=== PATIENT | female | born 1955 | race Caucasian/White ===

== ENCOUNTER → 2016-11-08 | Outpatient (CLI) | payer OTHER, SELFPAY ==
[~2016-11-08] MED LIST: ACCUNEB SO1.25 MG/1 INH; ACYCLOVIR 400400 MG PO; ATENOLOL 100MG100 M2 PO; ATIVAN1 MG PO; BACTRIM DS TAB1 EACH PO; ESTRACE0.5 MG PO; HYDROCODON-ACE1 EAC5 PO; LIPITOR40 MG PO; METHADONE HCL5 MG PO; PREVACID15 MG PO; VITAMIN D 5050000 I1
== END ==
LOC: RAD 14:02
DX: M19.011 Primary osteoarthritis, right shoulder (principal); M25.511 Pain in right shoulder

== ENCOUNTER → 2017-03-10 | Outpatient (CLI) | payer OTHER, SELFPAY | LOC: MRI 09:28 | DX: M17.12 Unilateral primary osteoarthritis, left knee (principal); M25.462 Effusion, left knee; M85.60 Other cyst of bone, unspecified site ==

== ENCOUNTER 2017-07-01 06:28 | Emergency (ER) | payer OTHER, SELFPAY ==
[~2017-07-01] VITALS: Ht 162.6 cm; Wt 90.7 kg
[2017-07-01] MEDS ORDERED: LISINOPRIL10 MG PO (06:42)
[2017-07-01] MEDS ORDERED: BENTYL 10 MG CA10 M1 PO (06:43)
[2017-07-01] MEDS ORDERED: LEVSIN0.125 MG PO (06:44)
[2017-07-01] MEDS ORDERED: LIDODERM1 EACH TRANSDERM (06:44)
[2017-07-01] MEDS ORDERED: PREVACID30 MG PO (06:44)
[2017-07-01] MEDS ORDERED: CLONIDINE0.1 PO (06:45)
[2017-07-01] MEDS ORDERED: LINZESS145 MCG PO (06:45)
[2017-07-02] MEDS ORDERED: PREDNISONE 20 M20 MG PO (03:28)
== END 2017-07-01 07:22 | disposition home or self-care (01) ==
LOC: ER 06:28
DX: T63.461A Toxic effect of venom of wasps, accidental (unintentional), initial encounter (principal); Z96.651 Presence of right artificial knee joint; Z88.5 Allergy status to narcotic agent; Z88.1 Allergy status to other antibiotic agents; Z88.8 Allergy status to other drugs, medicaments and biological substances; Y92.89 Other specified places as the place of occurrence of the external cause

== ENCOUNTER 2017-07-02 02:57 | Emergency (ER) | payer OTHER, SELFPAY ==
[~2017-07-02] VITALS: Ht 162.6 cm; Wt 90.7 kg
[~2017-07-02 02:57] MED LIST changes: +BENTYL 10 MG CA10 M1 PO; +CLONIDINE0.1 PO; +LEVSIN0.125 MG PO; +LIDODERM1 EACH TRANSDERM; +LINZESS145 MCG PO; +LISINOPRIL10 MG PO; +PREVACID30 MG PO
[2017-07-02] MEDS ORDERED: PREDNISONE 20 M20 MG PO (03:28)
== END 2017-07-02 03:56 | disposition home or self-care (01) ==
LOC: ER 02:57
DX: R22.0 Localized swelling, mass and lump, head (principal); T63.441A Toxic effect of venom of bees, accidental (unintentional), initial encounter; Z90.710 Acquired absence of both cervix and uterus; Z96.651 Presence of right artificial knee joint; Z88.5 Allergy status to narcotic agent; Z88.1 Allergy status to other antibiotic agents; Z88.8 Allergy status to other drugs, medicaments and biological substances; Y92.89 Other specified places as the place of occurrence of the external cause

== ENCOUNTER → 2017-12-16 | Outpatient (CLI) | payer OTHER, SELFPAY ==
[~2017-12-16] MED LIST changes: +ATENOLOL 50MG T50 MG PO; +PREDNISONE 20 M20 MG PO; +VOLTAREN GEL 1100 G2 TOP
== END ==
LOC: RAD 11-07 11:17 → NUC 11-07 16:17
DX: Z12.31 Encounter for screening mammogram for malignant neoplasm of breast (principal); M85.89 Other specified disorders of bone density and structure, multiple sites; Z78.0 Asymptomatic menopausal state

== ENCOUNTER → 2018-04-20 | Outpatient (CLI) | payer OTHER, SELFPAY ==
[~2018-04-20] VITALS: Ht 162.6 cm; Wt 99.8 kg
--- NOTE | ~2018-04-20 | HPC ---
[facility] [place] [address] PAIN MANAGEMENT CONSULTATION Name: DHAVALROSIBEL IVANNA Room #: REG [facility] Debbie.#: [id number] Admission: 04/20/18 Attend Phys: Blaine Underwood MD Discharge: Date of : 59 Report #: [id number] THIS REPORT FOR: //name// CC: Carmela Underwood DATE OF SERVICE: 04/20/2018 DATE OF REGISTRATION: 04/20/2018 REASON FOR VISIT: Followup visit for lumbar radiculopathy, recurrent. HISTORY OF PRESENT ILLNESS: The patient returns to pain clinic today now 3 months after her last epidural injection. Her injection performed on 01/30/2018 provided excellent relief for several months, pain now returning. Pain once again is in the back radiating to the left hip and leg, it follows an L4 through S1 distribution. She also has pain bilaterally in the feet related to degenerative disease of the ankles. Almost looks like Charcot joints, although she has never been diagnosed as such. MEDICATIONS AND ALLERGIES: Reviewed and reconciled. There has been no change in her health history since her last visit here. It should be noted that she continues to take opioid medication provided by her primary care physician. She takes it cautiously with great benefit. She uses methadone 5 mg q. 8 hours and hydrocodone taking up to 6 tablets a day. She gets improvement to the point that she is able to be active and useful on a daily basis. This also improves her mood. She has no significant side effects and understands that there is an opioid crisis that is incumbent upon as a safeguarded medications. It is excellent that her primary care physician is taking responsibilities for these medications and I am glad that she has someone who cares about her to provide this important measure of treatment for her chronic intractable pain. IMPRESSION: 1. Lumbar radiculopathy, L4-L5 distribution. 2. Epidural steroid injection under fluoroscopic guidance. DESCRIPTION OF PROCEDURE: She was taken to fluoroscopic suite, placed prone, skin prepped with ChloraPrep. Skin anesthetized over L4-L5 to the left midline. A 20-gauge Tuohy epidural needle advanced in the epidural space with loss of resistance technique. There was no blood or CSF aspirated. 1 mL of Omnipaque injected. Good spread of dye observed in the epidural space followed by 3 mL of [facility] [address] [place] [address] PAIN MANAGEMENT CONSULTATION Name: ROSIBEL PUENTES Room #: REG [facility].#: [id number] Admission: 04/20/18 Attend Phys: Blaine Underwood MD Discharge: Date of : 59 Report #: [id number] 0.5% lidocaine mixed with 80 mg triamcinolone. She tolerated the procedure well and was observed for 45 minutes and discharged. Follow up as needed. <ELECTRONICALLY SIGNED> By: Blaine Underwood MD 04/24/18 1230 1328 0055 Blaine Underwood MD /morris
[2018-04-20 12:32] VITALS: BP 183/74
== END | disposition home or self-care (01) ==
LOC: PAIN 07:25
DX: M54.16 Radiculopathy, lumbar region (principal)

== ENCOUNTER → 2018-08-14 | Outpatient (CLI) | payer OTHER ==
[~2018-08-14] VITALS: Ht 157.5 cm; Wt 98.1 kg
--- NOTE | ~2018-08-14 | HPC ---
[facility] [place] [address] PAIN MANAGEMENT CONSULTATION Name: DHAVALROSIBEL LEE Room #: REG [facility].#: [id number] Admission: 08/14/18 Attend Phys: Blaine Underwood MD Discharge: Date of : 59 Report #: [id number] THIS REPORT FOR: //name// CC: Carmela Underwood DATE OF SERVICE: 08/14/2018 Followup visit for cervical radiculopathy. The patient is here today with increasing pain in her neck radiating up through the occiput into both shoulders. She has cervical spondylosis and stenosis. An MRI performed in 2015 showed significant narrowing at C3-C4 through C5-C6, posterior ridging and spurring and borderline canal narrowing. There is more pain to the right where she has asymmetric right-sided osteophytic changes and disk osteophyte. This narrows the lateral recess. She would like very much to avoid surgery and is grateful for the extended relief she gets from her cervical epidural injections. She would like to repeat the injection today. Medications have been reviewed and reconciled. I do not provide medications for her. She is currently receiving lorazepam, albuterol, methadone, hydrocodone, atorvastatin, acyclovir, vitamins, dicyclomine, atenolol, Prevacid and diclofenac from primary care physician, Dr. Carmela Wu. PHYSICAL EXAMINATION: Blood pressure is 186/92, heart rate 70, respirations 18. Range of motion of the cervical spine is reduced in neck extension, which reproduces pain into the neck and shoulders. Forward flexion and rotational movements performed within normal limits. She has tenderness in the cervical spine. Deep tendon reflexes are trace at biceps and triceps, brachioradialis, 1+ at knees and ankles and symmetrical. There have been no asymmetric changes. Sensation is intact. There is no hyperreflexia in the lower extremities. IMPRESSION: 1. Cervical radiculopathy due to multilevel cervical spondylitic changes and stenosis. 2. Chronic low back pain with radiculopathy, which has responded nicely to previous epidural injections in the lumbar region. RECOMMENDATIONS: Proceed today with cervical epidural injection. PROCEDURE: She was taken to fluoroscopic suite, placed prone, skin prepped with ChloraPrep. Skin anesthetized over C5-C6. A 20-gauge Tuohy epidural needle advanced first attempt to the epidural space with loss of resistance technique. There was no blood or CSF aspirated. 1 mL of Isovue injected. Good spread of [facility] [address] [place] [address] PAIN MANAGEMENT CONSULTATION Name: ROSIBEL PUENTES IVANNA Room #: REG [facility]#: [id number] Admission: 08/14/18 Attend Phys: Blaine Underwood MD Discharge: Date of : 59 Report #: [id number] dye observed in the epidural space followed by 3 mL of 0.5% lidocaine mixed with 80 mg of triamcinolone. She tolerated the procedure well. Pain was markedly reduced in recovery room. She was discharged after a short stay in good condition with no complications. Follow up as needed. By: 1404 Blaine Underwood MD /nt
[2018-08-14 12:45] VITALS: BP 186/89
== END | disposition home or self-care (01) ==
LOC: PAIN 07-20 08:12
DX: M54.12 Radiculopathy, cervical region (principal); M48.02 Spinal stenosis, cervical region; G89.29 Other chronic pain; Z79.899 Other long term (current) drug therapy; Z88.8 Allergy status to other drugs, medicaments and biological substances

== ENCOUNTER → 2018-12-19 | Outpatient (CLI) | payer OTHER | LOC: RAD 11:52 | DX: Z12.31 Encounter for screening mammogram for malignant neoplasm of breast (principal) ==

== ENCOUNTER → 2019-08-01 | Outpatient (CLI) | payer OTHER | LOC: MRI 12:09 | DX: M19.071 Primary osteoarthritis, right ankle and foot (principal) ==

== ENCOUNTER → 2019-11-29 | Outpatient (CLI) | payer OTHER ==
[~2019-11-29] VITALS: Ht 157.5 cm; Wt 96.8 kg
--- NOTE | ~2019-11-29 | HPC ---
[facility] [place] [address] [place] [address] PAIN MANAGEMENT CONSULTATION Name: ROSIBEL PUENTES IVANNA Room #: REG [facility].#: [id number] Admission: 11/29/19 Attend Phys: Blaine Underwood MD Discharge: Date of : 59 Report #: [id number] THIS REPORT FOR: cc: Carmela Wu MD, Laurie Dawn MD Morgan,Blaine Coehn MD ~ THIS REPORT FOR: //name// CC: Carmela Underwood DATE OF SERVICE: 11/29/2019 CHIEF COMPLAINT: Low back pain with radiation down the posterior lateral aspect of the left leg. The patient is a pleasant 64-year-old, who has ongoing back pain with radiculopathy. Pain is typically in the low back, radiates into her left buttock and to just below the knee, mostly in the L4 distribution. She also has some pain into the top of the foot following L5 and the great toe, which is L4 distribution. Her last lumbar epidural injection was performed, left paramedian in 2018 and she reported 90% pain relief. Pain is now returning to a less tolerable level. She describes it as a 7/10 and very uncomfortable. She has not responded to the usual exercise and treatments. PHYSICAL EXAMINATION: She is 5 feet 2 inches, BMI of 39. Blood pressure 178/84, heart rate 64, respirations 16. She moves from sitting to standing position. Her gait is mildly antalgic. There is tenderness across the lumbosacral segment and pain with forward flexion and extension. Straight leg raising reproduces pain in the distribution described above. X-rays: I reviewed the MRIs distant from 2012, but at that time, she showed spondylosis at multiple levels with a left sided neural foraminal narrowing at L3-L4. There was some degenerative disk disease at L4-L5 as well. IMPRESSION: She has developed L4-L5 lumbar radiculopathy, which is responsive to lumbar epidural injections. RECOMMENDATIONS: I think it is reasonable for us to proceed at this time with an epidural injection, but she will need preauthorization from her insurance [facility] [address] [place] [address] PAIN MANAGEMENT CONSULTATION Name: DHAVALROSIBEL LEE Room #: REG [facility] [place]#: [id number] Admission: 11/29/19 Attend Phys: Blaine Underwood MD Discharge: Date of : 59 Report #: [id number] PPO. We will schedule her low back. I see no reason why they would deny this procedure, which is so valuable to her. Appointment scheduled for next week. By: 1945 [id number] Blaine Underwood MD /nt
[2019-11-29 10:25] VITALS: BP 178/84
--- NOTE | 2019-11-29 10:54 | NUR ---
Pain Clinic Assessment: 1. History of Osteoarthritis: GENERALIZED History of Rheumatoid Arthritis: Not Applicable 2. Height: 5 ft. 2 in. 157.5 cm. Weight: 213.4 lb. oz. 96.798 kg. Patient's BMI: 39.0 3. Vital Signs: BP: 178/84 Pulse: 64 Resp: 16 Temp: 02 Sat: 99 ECG Mon: 4. Pain Intensity: 7 5. Fall Risk: Dizziness: N Needs help standing or walking: N Fallen in the last 3 months: N Fall risk comments: 6. Patient on Blood Thinner: None 7. History of Hypertension: Y 8. Opioid Therapy greater than 6 weeks: Y Opiate Contract Signed: 01/16/18 9. Risk Assessment Tool Provided: 0 LOW 10. Functional Assessment Tool: 11. Recreational Drug Use: Never Drug Type: Tobacco Use: Never Smoker Tobacco Type: Amount or Packs/day: How Many Years: Alcohol Use: No Frequency: Quant:
== END ==
LOC: PAIN 06:55
DX: M54.16 Radiculopathy, lumbar region (principal); Z79.899 Other long term (current) drug therapy

== ENCOUNTER → 2019-12-05 | Outpatient (CLI) | payer OTHER ==
[~2019-12-05] VITALS: Ht 157.5 cm; Wt 97.6 kg
[2019-12-05 12:54] VITALS: BP 187/86
--- NOTE | 2019-12-05 13:07 | NUR ---
Pain Clinic Assessment: 1. History of Osteoarthritis: GENERALIZED History of Rheumatoid Arthritis: Not Applicable 2. Height: 5 ft. 2 in. 157.5 cm. Weight: 215.2 lb. oz. 97.614 kg. Patient's BMI: 39.4 3. Vital Signs: BP: 187/86 Pulse: 80 Resp: 16 Temp: 02 Sat: 98 ECG Mon: 4. Pain Intensity: 4-5 5. Fall Risk: Dizziness: N Needs help standing or walking: N Fallen in the last 3 months: N Fall risk comments: 6. Patient on Blood Thinner: None 7. History of Hypertension: Y 8. Opioid Therapy greater than 6 weeks: Y Opiate Contract Signed: 01/16/18 9. Risk Assessment Tool Provided: 0 LOW 10. Functional Assessment Tool: 11. Recreational Drug Use: Never Drug Type: Tobacco Use: Never Smoker Tobacco Type: Amount or Packs/day: How Many Years: Alcohol Use: No Frequency: Quant:
--- NOTE | 2019-12-11 08:03 | HPC ---
[facility] [place] [address] [place] [address] PAIN MANAGEMENT CONSULTATION Name: DHAVAL,ROSIBEL IVANNA Room #: REG [facility].#: [id number] Admission: 12/05/19 Attend Phys: Catrachito Daley DO Discharge: Date of : 59 Report #: [id number] THIS REPORT FOR: cc: Carmela Wu MD,Catrachito Zaragoza MD, DO ~ THIS REPORT FOR: //name// CC: Catrachito Wu DATE OF SERVICE: 12/05/2019 REFERRING PHYSICIAN: Carmela Wu MD. CHIEF COMPLAINT: Low back pain, left lower extremity pain with paresthesias. HISTORY OF PRESENT ILLNESS: As you know, the patient is a pleasant 64-year-old female who has returned today in followup visit with recurrent low back pain, left lower extremity pain with paresthesias, appears to be related to a L5 dermatomal distribution. The patient has had injections in the past with good efficacy. Due to scheduling conflicts, the patient was placed on my clinic schedule to undergo a lumbar epidural injection under fluoroscopic guidance using a transforaminal approach. The patient has had some issues with steroid in the past causing severe flushing, palpitations and some increased anxiety. It was determined that the patient should undergo a transforaminal epidural injection utilizing 40 mg dose of triamcinolone to reduce the potential side effects of a steroid exposure. The patient does place pain today at a level of 4-5/10. She returns today to undergo transforaminal epidural injection to address lumbar radicular symptoms involving the left L5 nerve root. ALLERGIES: CODEINE, OXYCODONE, ERYTHROMYCIN, RIFAMPIN, NITROFURANTOIN, MOXIFLOXACIN. CURRENT MEDICATIONS: Diclofenac, lorazepam, albuterol, methadone, hydrocodone, estradiol, atorvastatin, acyclovir, vitamin D, dicyclomine, lansoprazole, atenolol. IMAGING: No new imaging available. PQRS: The patient has known arthritic changes of the lumbar spine, bilateral hips and knees. No rheumatoid arthritis. She is placing pain intensity today 4-03/02, not a fall risk, has not had a fall in last 3 months. She is not on blood thinners, but is treated for hypertension. She is on chronic opioids and has reportedly low opioid addiction potential based on our assessment tool. [address] [address] PAIN MANAGEMENT CONSULTATION Name: DHAVAL,ROSIBEL LEE Room #: REG [facility] [place]#: [id number] Admission: 12/05/19 Attend Phys: Catrachito Daley DO Discharge: Date of : 59 Report #: [id number] Pain impact today , indicating moderate interference of daily activities secondary to pain. PHYSICAL EXAMINATION: VITAL SIGNS: Blood pressure 187/86, pulse 80, respiratory rate 16 and unlabored. The patient is 98% on room air. Height 5 feet 2 inches tall, weight 215.2 pounds, BMI calculated 39.4. GENERAL: Well-developed, well-nourished, well-hydrated, morbidly obese 64-year-old female appearing stated age, pain is rated today 4-5/10. HEENT: Normocephalic, atraumatic. Pupils equal, round, reactive to light. Extraocular muscles are intact. Sclerae nonicteric without injection. NEUROLOGIC: Cranial nerves 2-12 grossly intact. Speech is fluent. The patient deemed a good historian. EXTREMITIES: Show no clubbing, no cyanosis, and no edema. MUSCULOSKELETAL: Lower extremity strength appears symmetrical 5/5. Slight giveaway strength noted with hip flexion and knee extension on the left when compared to the right. Seated straight leg raising is positive on the left. Supine straight leg raising positive on the left. Juana's test is negative. Modified Gaenslen's positive for axial low back pain. Gait appears mildly antalgic favoring left lower extremity over right. ASSESSMENT: 1. Symptomatic lumbar radiculopathy. 2. Lumbosacral spondylosis with radiculopathy. 3. Recurrent lumbar radicular pain. 4. Chronic intractable pain. PLAN: 1. The patient returns today in followup visit having received the prior authorization to undergo transforaminal epidural injection at the L5 level to address the L5 nerve root. The patient and I did discuss the risks and benefits of this procedure today. These risks include but are not necessarily limited to bleeding, bruising, infection, worsening pain, no relief of pain, also risk of temporary or permanent muscle weakness, temporary or permanent nerve damage, possible paralysis, post-dural puncture headache, similar side effects that she is seeing with the steroids in the past and . The patient states she understood and wished to proceed. 2. No medication changes made at today's visit. The patient will continue current medical therapy as previously prescribed. 3. We will see the patient back in followup visit on an as needed basis for possible next in the series of epidural injections. We are hopeful the patient will see good and prolonged benefit with today's procedure. DESCRIPTION OF PROCEDURE: L5-S1 left transforaminal epidural steroid injection under fluoroscopic guidance. [address] [address] PAIN MANAGEMENT CONSULTATION Name: ROSIBEL PUENTES [id number] Admission: 12/05/19 Attend Phys: Catrachito Daley DO Discharge: Date of : 59 Report #: [id number] After obtaining written consent, the patient was taken back to fluoroscopy suite, placed in prone position with pillow under abdomen to decrease lumbar lordosis. Skin overlying lumbosacral area then prepped and draped in aseptic fashion. The L5 vertebral level was identified by fluoroscopy. The neural foramen (6 o'clock position of the pedicle) was then identified utilizing an oblique fluoroscopic view. Skin and subcutaneous tissue overlying target site of injection was anesthetized with 3 mL of 1% lidocaine. Using a tunneled view, a 22-guage 4-1/2 inch Tuohy needle with bent tip was advanced towards the left epidural space under fluoroscopic guidance. The final position of the needle was identified using AP and lateral views. There was no pain or paresthesias with needle placement. After negative aspiration for heme or cerebrospinal fluid, 0.5 mL of Omnipaque was injected demonstrating absence of vascular uptake and an excellent epidurogram. After negative aspiration for heme, 3 mL of a solution containing 1.5 mL of triamcinolone for a total of 60 mg and 1.5 mL of lidocaine 1% preservative-free was injected. Needle was retracted approximately half way, flushed with 1 mL of 1% lidocaine and removed. Sterile bandage placed over injection site. There were no new motor deficits present in lower extremity following procedure. The patient tolerated the procedure well, carefully escorted to recovery room in stable condition. No apparent complications. After meeting discharge criteria, the patient discharged home. <ELECTRONICALLY SIGNED> By: Catrachito Daley DO 12/11/19 0803 1642 2209 Catrachito Daley DO /nt
== END | disposition home or self-care (01) ==
LOC: PAIN 12-04 10:31
DX: M47.27 Other spondylosis with radiculopathy, lumbosacral region (principal); G89.29 Other chronic pain; I10 Essential (primary) hypertension; M19.90 Unspecified osteoarthritis, unspecified site; Z88.8 Allergy status to other drugs, medicaments and biological substances; Z79.899 Other long term (current) drug therapy

== ENCOUNTER → 2020-04-01 | Outpatient (CLI) | payer OTHER | LOC: ULTRA 15:04 | PROVIDERS: ATTEND Family Medicine | DX: K83.8 Other specified diseases of biliary tract (principal); K82.8 Other specified diseases of gallbladder ==

== ENCOUNTER → 2020-04-04 | Outpatient (CLI) | payer OTHER | LOC: BC 13:51 | PROVIDERS: ATTEND Family Medicine | DX: Z12.31 Encounter for screening mammogram for malignant neoplasm of breast (principal) ==

== ENCOUNTER 2021-05-11 13:05 | Inpatient (IN) | payer OTHER ==
[~2021-05-11] VITALS: Ht 152.4 cm; Wt 98.0 kg
[2021-05-11 13:24] VITALS: BP 177/121
[2021-05-11 13:43] LABS: ABSOLUTE NEUTROPHILS 5.6 thou/uL (1.4-8.2); EOSINOPHILS 0.5 % (0.0-3.0); HEMATOCRIT 30.1 % (37.0-47.0); LYMPHOCYTES 20.6 % (24.0-44.0); MCH 31.2 pg (26.0-34.0); MCHC 33.3 g/dL (28.0-37.0); MCV 93.8 fL (80.0-100.0); MONOCYTES 6.7 % (1.0-8.0); PLATELET COUNT 237 thou/uL (150-400); POLYS 71.2 % (36.0-66.0); RBC 3.21 mil/uL (4.20-5.00); RDW 15.5 % (10.5-14.5); WBC 7.9 thou/uL (4.0-11.0)
[2021-05-11 13:52] LABS: ANION GAP 7 mmol/L (7-16); BUN 11 mg/dL (7-18); CALCIUM 8.9 mg/dL (8.5-10.1); CHLORIDE 102 mmol/L (98-107); CO2 29 mmol/L (21-32); GLUCOSE 105 mg/dL (74-106); POTASSIUM 4.2 mmol/L (3.5-5.1); SODIUM 138 mmol/L (136-145)
[2021-05-11 14:01] LABS: ALBUMIN 3.3 g/dL (3.4-5.0); SGOT 43 U/L (15-37); SGPT 37 U/L (14-59); TOTAL BILIRUBIN 0.6 mg/dL (0.2-1.0); TROPONIN-I <0.06 ng/mL (<0.06)
--- NOTE | 2021-05-11 14:54 | EKG ---
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: KF : 1955 Requested By: Hellen Berrios Order Number: [id number] MD: Silvano Gutierrez Measurements Intervals [place] Rate: 140 P: -8 DC: 79 QRS: 58 QRSD: 85 T: -10 QT: 316 QTc: 482 Interpretive Statements Suspect Sinus tachycardia Nonspecific repol abnormality, inferior leads Compared to ECG 09/11/2013 12:11:20 Early repolarization now present Sinus rhythm no longer present ST (T wave) deviation no longer present Electronically Signed On 05-11-2021 14:54:10 CDT by Silvano Gutierrez [email or web address] <ELECTRONICALLY SIGNED> By: Silvano Gutierrez MD, [facility] 05/11/21 1454 1403 140 Silvano Gutierrez MD, FACC /EPI
[2021-05-11 15:08] LABS: URINE BILIRUBIN NEGATIVE (Negative); URINE BLOOD NEGATIVE (Negative); URINE CLARITY CLEAR; URINE COLOR YELLOW; URINE GLUCOSE-RANDOM* NEGATIVE (Negative); URINE KETONES NEGATIVE (Negative); URINE LEUKOCYTES-REFLEX NEGATIVE (Negative); URINE NITRITE-REFLEX NEGATIVE (Negative); URINE PROTEIN (DIPSTICK) 1+ (Negative); URINE SPECIFIC GRAVITY 1.015 (1.005-1.035); URINE UROBILINOGEN 0.2 E.U./dl (0.2-1.0)
[2021-05-11 15:16] LABS: AMP/METHAMP Negative (Negative); BARBITURATES Negative (Negative); BENZODIAZEPINES Negative (Negative); COCAINE Negative (Negative); METHADONE POSITIVE (Negative); OPIATES POSITIVE (Negative); PCP Negative (Negative)
[2021-05-11 15:19] LABS: SQUAMOUS 0-3 Few /LPF (0-3); URINE RBC None Seen /HPF (NONE SEEN); URINE WBC-REFLEX 0-5 Rare /HPF (0-5)
[2021-05-11 15:20] LABS: CASTS None Seen /LPF (None Seen); CRYSTALS None Seen /LPF (None Seen)
[2021-05-11 17:22] VITALS: BP 176/84
[2021-05-11 18:25] VITALS: BP 160/114
[2021-05-12 04:45] VITALS: BP 149/90
[2021-05-12 05:24] LABS: HEMATOCRIT 29.1 % (37.0-47.0); HEMOGLOBIN 9.7 gm/dL (12.0-15.0); MCH 31.1 pg (26.0-34.0); MCHC 33.3 g/dL (28.0-37.0); MCV 93.5 fL (80.0-100.0); RBC 3.11 mil/uL (4.20-5.00); RDW 15.7 % (10.5-14.5); WBC 6.7 thou/uL (4.0-11.0)
[2021-05-12 05:35] LABS: ALBUMIN 2.9 g/dL (3.4-5.0); ANION GAP 10 mmol/L (7-16); BUN 10 mg/dL (7-18); CALCIUM 8.5 mg/dL (8.5-10.1); CHLORIDE 100 mmol/L (98-107); CO2 30 mmol/L (21-32); GLUCOSE 114 mg/dL (74-106); PHOSPHORUS 3.1 mg/dL (2.5-4.9); POTASSIUM 3.4 mmol/L (3.5-5.1); SODIUM 140 mmol/L (136-145); TROPONIN-I <0.06 ng/mL (<0.06)
--- NOTE | 2021-05-12 06:23 | NUR ---
PATIENTS CARES WERE ASSUMED AT SHIFT CHANGE. PATIENT WAS ASSESSED AND MEDS WERE PASSED. PATIENT B/P HAS RUN HIGH SINCE ARRIVAL. CARDIOLOGY CALLED LAST NIGHT IN REGARDS TO B/P AND ORDERS WERE GIVEN. ROUNDS WERE DONE WILL CONTINUE TO MONITOR.
--- NOTE | 2021-05-12 07:39 | EKG ---
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1955 Requested By: Ilene Crump Order Number: [id number] MD: Silvano Gutierrez Measurements Intervals [place] Rate: 71 P: [place]: QRS: 54 QRSD: 114 T: 17 QT: 393 QTc: 428 Interpretive Statements AFIB/Flutter Borderline intraventricular conduction delay Minimal ST depression, inferior leads Minimal ST elevation, anterior leads Compared to ECG 05/11/2021 14:03:10 ST (T wave) deviation now present Sinus tachycardia no longer present Early repolarization no longer present Electronically Signed On 05-12-2021 7:39:22 CDT by Silvano Gutierrez [email or web address] <ELECTRONICALLY SIGNED> By: Silvano Gutierrez MD, FACC 05/12/21 0739 1625 1625 Silvano Gutierrez MD, [facility] /EPI
--- NOTE | 2021-05-12 08:07 | 2DMMODE ---
[facility] [place] [address] 2 D/M-MODE ECHOCARDIOGRAM Name: ROSIBEL PUENTES Room #: 201-P ADM IN M.R.#: [id number] Admission: 05/11/21 Attend Phys: Mary Kay Fernandez Discharge: Date of : 59 Report #: [id number] THIS REPORT FOR: cc: Carmela Wu MD, Laurie Dawn MD Santiago, Patrick MD [facility] ~ APPROVED REPORT Study performed: 05/12/2021 07:06:28 EXAM: Comprehensive 2D, Doppler, and color-flow Echocardiogram Patient Location: Bedside Room #: 201 Status: routine BSA: 2.03 HR: 93 bpm BP: 149/90 mmHg Rhythm: Irregular Other Information Study Quality: Good Indications Short of breath, CHF, Aflutter. 2D Dimensions RVDd: 35.25 mm IVSd: 12.59 (7-11mm) LVOT Diam: 20.69 (18-24mm) LVDd: 45.16 mm PWd: 11.05 (7-11mm) Ascending Ao: 32.00 (22-36mm) LVDs: 32.95 (25-40mm) Left Atrium: 43.36 (27-40mm) Aortic Root: 31.73 mm Volumes Left Atrial Volume (Systole) Single Plane 4CH: 86.81 mL Single Plane 2CH: 68.63 mL LA ESV Index: 41.00 mL/m2 Aortic Valve AoV Peak Pj.: 1.27 m/s AO Peak Gr.: 6.50 mmHg LVOT Max P.39 mmHg LVOT Max V: 0.77 m/s PEEWEE Vmax: 2.04 cm2 [facility] [address] [place] [address] 2 D/M-MODE ECHOCARDIOGRAM Name: DHAVALROSIBEL LEE Room #: 201-P [facility] IN .R.#: [id number] Admission: 05/11/21 Attend Phys: Mary Kay Romero Discharge: Date of : 59 Report #: [id number] Mitral Valve MV Decel. Time: 138.19 ms MV E Max Pj.: 1.24 m/s Pulmonary Valve PV Peak Pj.: 0.80 m/s PV Peak Gr.: 2.56 mmHg Pulmonary Vein P Vein S: 0.75 m/s Tricuspid Valve TR Peak Pj.: 2.90 m/s RAP Estimate: 5.00 mmHg TR Peak Gr.: 33.00 mmHg PA Pressure: 38.00 mmHg Left Ventricle The left ventricle is normal size. There is normal LV segmental wall motion. Mild basal septal hypertrophy is present. Left ventricular systolic function is normal. LVEF is 55-60%. This study is not technically sufficient to allow evaluation of the LV diastolic function due to arrhythmia. Right Ventricle The right ventricle is normal size. The right ventricular systolic function is normal. Atria Moderate biatrial enlargement. Aortic Valve The aortic valve is normal in structure; minimally calcified. No aortic regurgitation is present. There is no aortic valvular stenosis. Mitral Valve Mitral valve leaflets are mildly thickened. Mild mitral annular calcification. Mild mitral regurgitation. Tricuspid Valve The tricuspid valve is normal in structure. Moderate tricuspid regurgitation. Estimated PAP is 38mmHg. Pulmonic Valve The pulmonary valve is normal in structure. Trace pulmonic regurgitation. [facility] [address] [place] [address] 2 D/M-MODE ECHOCARDIOGRAM Name: DHAVALROSIBEL LEE Room #: 201-P [facility] IN ..#: [id number] Admission: 05/11/21 Attend Phys: Mary Kay Romero Discharge: Date of : 59 Report #: [id number] Great Vessels The aortic root is normal in size. The ascending aorta is normal in size. IVC is borderline dilated and collapses >50% with inspiration. Pericardium There is no pericardial effusion. <Conclusion> Normal left ventricular size with mild basal hypertrophy Ejection fraction 55% Normal right ventricular size/function Moderate biatrial enlargement Color-flow Doppler studies performed of the aortic/mitral/tricuspid/pulmonary valve Minimal aortic valve calcification without stenosis Mild mitral valve insufficiency Mild mitral annular calcification Moderate tricuspid valve insufficiency Pulmonary systolic pressure estimated 38 mmHg Normal aortic root size No pericardial effusion <ELECTRONICALLY SIGNED> By: Silvano Gutierrez MD, [facility] 05/12/21805 5 5 Silvano Gutierrez MD, FACC /INF
[2021-05-12 11:57] VITALS: BP 150/89
--- NOTE | 2021-05-12 16:57 | NUR ---
PT ALERT AND ORIENTED TIMES FOUR. VSS. SR ON TELE. PT C/O PAIN PRN PAIN MEDICATION CONTROLLING PAIN WELL. PT TOLERATES MEDS AND MEALS. PT UP AB IRMA WITH STEADY GAIT. PT SLOWLY PROGRESSING TOWARDS POC GOALS.
[2021-05-12 17:00] VITALS: BP 135/73
[2021-05-12 20:00] VITALS: BP 155/89
[2021-05-13 04:49] LABS: ALBUMIN 3.1 g/dL (3.4-5.0); CALCIUM 8.9 mg/dL (8.5-10.1); CREATININE 1.1 mg/dL (0.6-1.0); PHOSPHORUS 3.8 mg/dL (2.5-4.9); POTASSIUM 3.6 mmol/L (3.5-5.1)
--- NOTE | 2021-05-13 06:45 | NUR ---
PATIENT CARES WERE ASUMED AT SHIFT CHANGE. PATIENT WS ASSESSED AND MEDS WERE PASSED. PATIENT HAD AN UNEVENTFUL NIGHT. SHE WAS ABLE TO SLEEP APPROX 8 HOURS OF THIS SHIFT.ROUND WERE MADE. THE BED ALARM WAS OFF DUE TO HER UP AND INDEPENDENT IN HER ROOM. THE BED IS IN A LOW AND LOCKED POSITION.
[2021-05-13 08:09] VITALS: BP 179/105
[2021-05-13 11:09] VITALS: BP 147/92
[2021-05-13 15:15] VITALS: BP 172/85
--- NOTE | 2021-05-13 18:03 | NUR ---
MEDICATE PT FOR CHRONIC PAIN TODAY. PT TOOK IN GOOD PO AND AMBULATED ROOM WELL. DR. VALDEZ ADJUSTED CARDIAC MEDS. WILL CONTINUE TO ASSESS.
[2021-05-13 19:37] VITALS: BP 187/96
[2021-05-13 23:51] VITALS: BP 193/94
[2021-05-14 05:09] VITALS: BP 152/85
--- NOTE | 2021-05-14 06:49 | NUR ---
PATIENTS CARES WAS ASSUMED AT SHIFT CHANGE. PATIENT WAS ASSESSED AND MEDS WERE PASSED. PATIENT BELIEVED SHE IS GOING HOME TODAY. SHE IS IN GOOD SPIRITS. ROUNDS WERE DONE. THE BED IS IN A LOW AND LOCKED POSITION. SHE SLEPT APPROX EIGHT HOURS. SHE HAD AN UNEVENTFUUL NIGHT
[2021-05-14 08:00] VITALS: BP 187/92
[2021-05-14 11:31] VITALS: BP 172/88
--- NOTE | 2021-05-14 12:42 | NUR ---
PT C/O SOB AND CHEST FLUTTERING. OBTAIN EKG WHICH SOHWED CONTOLLED AFIB. CONTACT PADMAJA COLLAZO IMAGING ANALYST TO INFORM AND SHE ORDERED CXRY. RT GAVE NEBULIZER TREATMENT. OXYGEN SATURANTION REMAINS IN THE HIGH 90S. WILL CONTINUE TO ASSESS.
[2021-05-14 15:36] VITALS: BP 166/112
[2021-05-14 19:35] VITALS: BP 171/79
[2021-05-14 23:52] VITALS: BP 149/85
[2021-05-15 04:00] VITALS: BP 142/81
--- NOTE | 2021-05-15 04:22 | NUR ---
PT IS ALERT AND ORIENTED X4. LUNGS ARE DIMINISHED TO CLEAR. ACTITVE BOWEL SOUNDS ROUND SOFT. SWELLING 3 PLUS IN ANKLES BILATERAL.PAIN MEDS GIVEN ONCE REPORTS PAIN IN NECK. SLEEPING AFTER 2100 MEDS GIVEN TO PT. BLOOD PRESSURE IMPROVING OVER THE SHIFT. INFORM, PT OF BLOOD PRESURE READING AND EDUCATION. CALL LIGHT WITHIN REACH
[2021-05-15] MEDS ORDERED: METOPROLOL SUCC50 MG PO (07:50)
[2021-05-15] MEDS ORDERED: LASIX 40 MG TAB40 M1 PO (07:50)
[2021-05-15] MEDS ORDERED: COZAAR 50 MG TA50 MG PO (07:50)
[2021-05-15] MEDS ORDERED: ELIQUIS5 MG PO (07:50)
[2021-05-15] MEDS ORDERED: CARTIA XT240 M1 PO (07:50)
[2021-05-15] MEDS ORDERED: KLOR-CON M2020 MEQ PO (07:50)
[2021-05-15 08:00] VITALS: BP 153/81
[2021-05-15 08:39] LABS: HEMATOCRIT 38.2 % (37.0-47.0); HEMOGLOBIN 12.6 gm/dL (12.0-15.0); MCH 30.6 pg (26.0-34.0); MCHC 33.1 g/dL (28.0-37.0); MCV 92.4 fL (80.0-100.0); RBC 4.13 mil/uL (4.20-5.00); RDW 15.5 % (10.5-14.5); WBC 5.6 thou/uL (4.0-11.0)
[2021-05-15 09:08] LABS: CALCIUM 10.7 mg/dL (8.5-10.1); CREATININE 1.1 mg/dL (0.6-1.0); POTASSIUM 4.3 mmol/L (3.5-5.1)
--- NOTE | 2021-05-15 09:44 | EKG ---
[address] [place] [address] ELECTROCARDIOGRAM REPORT Name: DHAVAL,ROSIBEL LEE Room #: 201-P ADM IN M.R.#: [id number] Admission: 05/11/21 Attend Phys: Mary Kay Fernandez Discharge: Date of : 59 Report #: [id number] [facility] Test Date: 2021-05-14 Test Time: 12:25:44 Pat Name: ROSIBEL PUENTES Department: Room: 201 P Gender: F Manager Combination: DEBBIE : 1955 Requested By: Mary Kay Fernandez Order Number: [id number] MD: Girish Delgado Measurements Intervals [place] Rate: 73 P: [place]: QRS: 55 QRSD: 84 T: 192 QT: 491 QTc: 542 Interpretive Statements Atrial fibrillation Poor R wave progression Nonspecific ST and T wave abnormality Prolonged QT interval Compared to ECG 05/11/2021 16:25:05 Poor R wave progression is now present Prolonged QT interval now present Nonspecific change in the ST and T wave segments Electronically Signed On 05-15-2021 9:44:45 CDT by Girish Delgado [email or web address] <ELECTRONICALLY SIGNED> By: Girish Delgado MD, [facility] 05/15/21 0944 1225 1225 Girish Delgado MD, [facility] /EPI
[2021-05-15 11:03] VITALS: BP 153/81
--- NOTE | 2021-05-15 11:48 | NUR ---
ASSUMED CARE SHIFT CHANGE. VSS. C/O PAIN MANAGED WITH PO PAIN MEDS. O2 SATS WNL RA. DENIES SOB. HR STABLE. DC ORDERS. DISCUSSED WITH PT COMMUNIATES UNDERSTANDING. TELE REMOVED. IV REMOVED. PT LEFT UNIT WITH ALL BELONGINGS
== END 2021-05-15 12:15 | disposition home or self-care (01) | DRG 291 ==
LOC: ER 13:05 → EROBS 19:01 → 2N 19:01
PROVIDERS: Nurse Practitioner; Nurse Practitioner Adult Health; Physician Assistant; ADMIT Hospitalist; ATTEND Hospitalist
DX: I11.0 Hypertensive heart disease with heart failure (principal); I50.31 Acute diastolic (congestive) heart failure; R65.11 Systemic inflammatory response syndrome (SIRS) of non-infectious origin with acute organ dysfunction; I48.92 Unspecified atrial flutter; Z68.41 Body mass index [BMI] 40.0-44.9, adult; Z20.822 Contact with and (suspected) exposure to COVID-19; I16.0 Hypertensive urgency; E66.9 Obesity, unspecified; Z60.2 Problems related to living alone; I50.9 Heart failure, unspecified; I48.91 Unspecified atrial fibrillation; D64.9 Anemia, unspecified; E87.6 Hypokalemia; G47.33 Obstructive sleep apnea (adult) (pediatric); Z79.899 Other long term (current) drug therapy; Z97.10 Presence of artificial limb (complete) (partial), unspecified; Z88.6 Allergy status to analgesic agent; Z88.1 Allergy status to other antibiotic agents; Z88.8 Allergy status to other drugs, medicaments and biological substances
CPT/HCPCS: 10081

== ENCOUNTER → 2021-06-25 | Outpatient (CLI) | payer OTHER ==
[~2021-06-25] MED LIST changes: +CARTIA XT240 M1 PO; +COZAAR 50 MG TA50 MG PO; +ELIQUIS5 MG PO; +KLOR-CON M2020 MEQ PO; +LASIX 40 MG TAB40 M1 PO; +METOPROLOL SUCC50 MG PO
== END ==
LOC: SJCVCIMAG 09:37
PROVIDERS: ATTEND Internal Medicine Cardiovascular Disease
DX: I48.91 Unspecified atrial fibrillation (principal); R06.00 Dyspnea, unspecified; E78.5 Hyperlipidemia, unspecified; I50.9 Heart failure, unspecified; I11.0 Hypertensive heart disease with heart failure; E66.9 Obesity, unspecified

== ENCOUNTER → 2021-07-14 | Outpatient (CLI) | payer OTHER ==
[~2021-07-14] VITALS: Ht 160 cm; Wt 101.0 kg
[2021-07-14 11:48] VITALS: BP 166/103
[2021-07-14 12:19] LABS: HEMATOCRIT 33.5 % (37.0-47.0); MCH 31.2 pg (26.0-34.0); MCHC 32.9 g/dL (28.0-37.0); MCV 94.8 fL (80.0-100.0); RBC 3.53 mil/uL (4.20-5.00); RDW 16.8 % (10.5-14.5); WBC 7.3 thou/uL (4.0-11.0)
[2021-07-14 12:23] LABS: ALBUMIN 3.3 g/dL (3.4-5.0); CALCIUM 9.1 mg/dL (8.5-10.1); CREATININE 0.9 mg/dL (0.6-1.0); TOTAL BILIRUBIN 0.4 mg/dL (0.2-1.0); TOTAL PROTEIN 7.1 g/dL (6.4-8.2)
[2021-07-14 12:28] LABS: PROTIME 10.9 Seconds (10.5-12.1)
== END | disposition home or self-care (01) ==
LOC: CATH 07:10
PROVIDERS: ATTEND Internal Medicine Cardiovascular Disease
DX: I48.91 Unspecified atrial fibrillation (principal); I11.0 Hypertensive heart disease with heart failure; I50.9 Heart failure, unspecified; E78.5 Hyperlipidemia, unspecified; Z98.890 Other specified postprocedural states; Z79.899 Other long term (current) drug therapy; Z88.8 Allergy status to other drugs, medicaments and biological substances; Z20.822 Contact with and (suspected) exposure to COVID-19
CPT/HCPCS: 62110; 62900

== ENCOUNTER 2021-07-21 12:00 | Emergency (ER) | payer OTHER ==
[~2021-07-21] VITALS: Ht 157.5 cm; Wt 99.8 kg
[2021-07-21 12:15] VITALS: BP 110/69
[2021-07-21 12:24] LABS: URINE BILIRUBIN NEGATIVE (Negative); URINE BLOOD NEGATIVE (Negative); URINE CLARITY CLEAR; URINE COLOR YELLOW; URINE GLUCOSE-RANDOM* NEGATIVE (Negative); URINE KETONES NEGATIVE (Negative); URINE LEUKOCYTES-REFLEX NEGATIVE (Negative); URINE NITRITE-REFLEX NEGATIVE (Negative); URINE PROTEIN (DIPSTICK) NEGATIVE (Negative); URINE UROBILINOGEN 0.2 E.U./dl (0.2-1.0)
[2021-07-21 12:33] LABS: ABSOLUTE NEUTROPHILS 3.9 thou/uL (1.4-8.2); BASOPHILS 0.9 % (0.0-2.0); EOSINOPHILS 1.1 % (0.0-3.0); HEMATOCRIT 34.7 % (37.0-47.0); HEMOGLOBIN 11.3 gm/dL (12.0-15.0); MCH 30.6 pg (26.0-34.0); MCHC 32.6 g/dL (28.0-37.0); MCV 93.9 fL (80.0-100.0); MONOCYTES 6.9 % (1.0-8.0); PLATELET COUNT 258 thou/uL (150-400); POLYS 71.1 % (36.0-66.0); RBC 3.69 mil/uL (4.20-5.00); RDW 16.8 % (10.5-14.5); WBC 5.5 thou/uL (4.0-11.0)
[2021-07-21 12:49] LABS: ALBUMIN 3.5 g/dL (3.4-5.0); TOTAL BILIRUBIN 0.5 mg/dL (0.2-1.0); TOTAL PROTEIN 7.9 g/dL (6.4-8.2)
--- NOTE | 2021-07-21 15:55 | EKG ---
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: JAELYN : 1955 Requested By: Alex Pavon Order Number: [id number] MD: Silvano Gutierrez Measurements Intervals [place] Rate: 75 P: 65 [place]: 199 QRS: 48 QRSD: 98 T: 11 QT: 409 QTc: 457 Interpretive Statements Sinus rhythm Compared to ECG 05/14/2021 12:25:44 Atrial fibrillation no longer present Poor R-wave progression no longer present ST (T wave) deviation no longer present Prolonged QT interval no longer present Electronically Signed On 07-21-2021 15:55:27 CDT by Silvano Gutierrez [email or web address] <ELECTRONICALLY SIGNED> By: Silvano Gutierrez MD, [facility] 07/21/21 1555 1218 1218 Silvano Gutierrez MD, [facility] /EPI
== END 2021-07-21 13:23 | disposition home or self-care (01) ==
LOC: ER 12:00
PROVIDERS: Student in an Organized Health Care Education/Training Program
DX: I10 Essential (primary) hypertension (principal); Z90.89 Acquired absence of other organs; Z90.710 Acquired absence of both cervix and uterus; Z79.899 Other long term (current) drug therapy; Z88.5 Allergy status to narcotic agent; Z88.1 Allergy status to other antibiotic agents

== ENCOUNTER → 2021-09-02 | Outpatient (CLI) | payer OTHER ==
[~2021-09-02] VITALS: Ht 157.5 cm; Wt 100.0 kg
[~2021-09-02] MED LIST changes: +LORAZEPAM 1 MG T1 MG PO; +ONDANSETRON HCL4 M3 PO; +POTASSIUM CHLO20 ME1 PO; +TAMBOCOR 100 M100 M1 PO
[2021-09-02 07:21] VITALS: BP 170/82
--- NOTE | 2021-09-02 09:02 | TEE ---
[facility] [place] [address] TRANSESOPHAGEAL ECHOCARDIOGRAM Name: ROSIBEL PUENTES Room #: REG [facility]#: [id number] Admission: 09/02/21 Attend Phys: Girish Delgado MD, Discharge: Date of : 59 Report #: [id number] THIS REPORT FOR: cc: Carmela Wu MD, Laurie Dawn MD Lundgren, Craig H. MD [facility] ~ APPROVED REPORT Study performed: 09/02/2021 07:57:47 EXAM: Transesophageal Echocardiogram with Doppler Patient Location: Out-Patient Room #: 9 BSA: 1.99 HR: 88 bpm BP: 166/77 mmHg Rhythm: NSR Other Information Study Quality: Excellent Indications Atrial Fibrillation Echo Enhancing Agent Indication: Rule out Shunt Agent(s) / Amount(s) Used: Agitated Saline 7 cc Procedure After obtaining informed consent, patient underwent transesophageal echo in the [employer]. Type of Sedation : Conscious Sedation Sedation start time: 809 Case end Time: 821 Sedation was achieved intravenously with: Versed (6mg) Fentanyl (100mcg) Transesophageal probe was inserted and advanced into esophagus without difficulty by Girish Delgado MD. Echo enhancement indication: R/O Septal defect. Echo enhancement agent administered: Agitated Saline The CARROLL was performed without complications. Throughout the procedure, the blood pressure, pulse oximetry, cardiac rhythm, and rate were monitored. The patient tolerated the procedure without adverse effects. Recovery from conscious sedation was uneventful and vital signs were [facility] [address] [place] [address] TRANSESOPHAGEAL ECHOCARDIOGRAM Name: ROSIBEL PUENTES Room #: REG [facility]#: [id number] Admission: 09/02/21 Attend Phys: Girish Delgado, Discharge: Date of : 59 Report #: [id number]. Left Ventricle The left ventricle is normal size. There is normal LV segmental wall motion. There is normal left ventricular wall thickness. The left ventricular systolic function is normal. The left ventricular ejection fraction is within the normal range. LVEF 60%. Right Ventricle The right ventricle is normal size. The right ventricular systolic function is normal. Atria Left atrium is dilated. No thrombus is visualized in the left atrium or appendage. No shunting by contrast bubble injection Right atrium is dilated. Aortic Valve The aortic valve is normal in structure, trileaflet No aortic regurgitation is present. There is no aortic valvular stenosis. Mitral Valve The mitral valve is normal in structure. Mild mitral regurgitation. No evidence of mitral valve stenosis. Tricuspid Valve The tricuspid valve is normal in structure. Mild tricuspid regurgitation. Pulmonic Valve The pulmonary valve is normal in structure. There is no pulmonic valvular regurgitation. Great Vessels The aortic root is normal in size. The ascending aorta is normal in size. Mild aortic atherosclerosis IVC is normal in size and collapses >50% with inspiration. Pericardium There is no pericardial effusion. <Conclusion> The left ventricular systolic function is normal. There is normal LV segmental wall motion. LVEF 60%. [facility] [address] [place] [address] TRANSESOPHAGEAL ECHOCARDIOGRAM Name: ROSIBEL PUENTES IVANNA Room #: REG [facility]#: [id number] Admission: 09/02/21 Attend Phys: Girish Delgado, Discharge: Date of : 59 Report #: [id number] Left atrium is dilated. No thrombus is visualized in the left atrium or appendage. No shunting by contrast bubble injection The aortic valve is normal in structure. No aortic regurgitation or stenosis The mitral valve is normal in structure. Mild mitral regurgitation. There is no pericardial effusion. <ELECTRONICALLY SIGNED> By: Girish Delgado MD, FACC 09/02/21901 1 1 Girish Delgado MD, FACC /INF
== END | disposition home or self-care (01) ==
LOC: CATH 06:24
PROVIDERS: ATTEND Internal Medicine
DX: I48.91 Unspecified atrial fibrillation (principal); I08.1 Rheumatic disorders of both mitral and tricuspid valves; I70.0 Atherosclerosis of aorta; I11.0 Hypertensive heart disease with heart failure; I50.9 Heart failure, unspecified; E78.5 Hyperlipidemia, unspecified; K21.9 Gastro-esophageal reflux disease without esophagitis; E66.9 Obesity, unspecified; Z98.890 Other specified postprocedural states; Z79.899 Other long term (current) drug therapy; Z79.01 Long term (current) use of anticoagulants; Z96.651 Presence of right artificial knee joint; Z88.6 Allergy status to analgesic agent; Z88.8 Allergy status to other drugs, medicaments and biological substances

== ENCOUNTER 2021-09-04 06:40 | Observation (INO) | payer OTHER ==
[~2021-09-04] VITALS: Ht 160 cm; Wt 99.8 kg
[2021-09-04] VITALS (7 sets, daily range): BP systolic 150–179; BP diastolic 77–97
[2021-09-04 07:59] LABS: ABSOLUTE NEUTROPHILS 5.4 thou/uL (1.4-8.2); BASOPHILS 0.9 % (0.0-2.0); EOSINOPHILS 1.1 % (0.0-3.0); HEMATOCRIT 34.2 % (37.0-47.0); HEMOGLOBIN 11.4 gm/dL (12.0-15.0); LYMPHOCYTES 18.9 % (24.0-44.0); MCH 32.5 pg (26.0-34.0); MCHC 33.4 g/dL (28.0-37.0); MCV 97.3 fL (80.0-100.0); PLATELET COUNT 225 thou/uL (150-400); POLYS 73.1 % (36.0-66.0); RBC 3.51 mil/uL (4.20-5.00); RDW 15.3 % (10.5-14.5); WBC 7.3 thou/uL (4.0-11.0)
[2021-09-04 08:03] LABS: CALCIUM 8.9 mg/dL (8.5-10.1); POTASSIUM 3.9 mmol/L (3.5-5.1)
[2021-09-04 08:09] LABS: ALBUMIN 3.1 g/dL (3.4-5.0); TOTAL BILIRUBIN 0.4 mg/dL (0.2-1.0); TOTAL PROTEIN 6.9 g/dL (6.4-8.2)
[2021-09-04 09:16] LABS: APTT 26.9 Seconds (24.5-32.8); INR 1.01
--- NOTE | 2021-09-04 19:26 | NUR ---
PT ADMITED FROM BLOW MOLD TECHNICIAN. ADMISSION HX AND ASSESSMENT COMPLETED. PRN PAIN MED GIVEN WITH PARTIAL RELIEF. RIGHT GROIN INCISION C/D/I. NO HEMATOMA NOTED.
--- NOTE | 2021-09-04 22:51 | NUR ---
ASSUMED PT CARE AT 1900.PT OBSERVED SITTING UP IN THE RECLINER IN HER ROOM WATCHING TV AT SHIFT [facility].PT DENIED PAIN SO FAR.DRSG TO HER R TONIA,C/D/I.PT UP ADLIB IN HER ROOM.PT ABLE TO MAKE HER NEEDS KNOWN.CALL LIGHT WITHIN REACH.
[2021-09-05 03:45] VITALS: BP 145/93
[2021-09-05 07:13] VITALS: BP 182/117
[2021-09-05 09:13] VITALS: BP 183/117
--- NOTE | 2021-09-05 10:19 | NUR ---
Assumed care of pt this AM. Pt is A&O x4, on RA. SR on the monitor. Pt extremely anxious & ready to get out of hospital. Pt states that she just can't stand to be here anymore. Asked if there was any specific reason for anxiety, she stated she has just "had enough of the stay, the staff, and the hospital". Pt states that there was no one/ any specific incident to incite feelings. BP high this AM, given HTN medications. Pt states its because she's "shaking so bad & can't hold still". Discharge education provided to pt. Forms signed & posted in chart. IV & tele d/c'ed. Pt wheeled to ER entrance.
[2021-09-05 10:22] VITALS: BP 183/117
--- NOTE | 2021-09-07 10:10 | P ---
[facility] [place] [address] PROCEDURE REPORT Name: ROSIBEL PUENTES Room #: [address] [place] [address] M..#: [id number] Admission: 09/04/21 Attend Phys: Vikram Ny MD Discharge: 09/05/21 Date of : 59 Report #: [id number] THIS REPORT FOR: cc: Carmela Wu MD, Laurie Dawn MD Couchonnal, Luis F. MD ~ PREOPERATIVE DIAGNOSES: 1. Atrial fibrillation. 2. Typical atrial flutter. HISTORY: The patient is a 66-year-old recently admitted to the hospital with AFib and atrial flutter, here for ablation. PROCEDURES PERFORMED: 1. Atrial fibrillation ablation, CPT code 44377. 2. 3D mapping, CPT code 77289. 3. Intracardiac echo, CPT code 66300. 4. Second pathway ablation, CPT code 81821. DESCRIPTION OF PROCEDURE: The patient was brought to the EP laboratory in a fasting and sedated state and placed under general anesthesia. I then obtained access to the right femoral vein x 3, placing 8, 9 and 7-Kazakh short sheath using the modified Seldinger technique. Under fluoroscopy, I placed a decapolar catheter easily in the coronary sinus and ICE catheter in the right atrium. With intracardiac ultrasound, I verified that there were 2 left and 2 right pulmonary veins. The patient at baseline was in sinus rhythm. The patient was systemically heparinized and a transseptal was performed using an SL1 sheath and a Livingston needle, which was straightforward. I exchanged this for the cryosheath and placed the Lasso catheter in the left atrium. A 3D voltage map of the left atrium was then created. Next, the cryoballoon was placed in the left atrium, the left superior pulmonary vein underwent a 4-minute freeze isolated at 60 seconds. The left inferior pulmonary vein underwent a 4-minute freeze and isolated at 40 seconds. The right superior pulmonary vein underwent a 3-minute followed by 2-minute freeze with evidence of isolation. The right inferior pulmonary vein underwent a 200-second freeze, a 110 freeze and a 240-second freeze, neither of which resulted in isolation. Therefore, I removed the cryoballoon and recreated a repeat voltage map of the left atrium, showed that all veins were isolated except for the right inferior pulmonary vein, which was connected along the anterior inferior aspect. Therefore, I placed the balloon into the right vein again and ablated lower and anteriorly along the vein and this resulted in isolation at 60 seconds. Final freeze was of 4 minutes' duration. As such, the patient's catheters were pulled to the right atrium. Atrial flutter ablation: The patient was prepped for atrial flutter ablation. A ramp sheath, an 8 mm ablation catheter was placed into the right atrium. [facility] [address] [place] [address] PROCEDURE REPORT Name: ROSIBEL PUENTES IVANNA Room #: 210-P [facility] Ailyn Macedo#: [id number] Admission: 09/04/21 Attend Phys: Vikram Ny MD Discharge: 09/05/21 Date of : 59 Report #: [id number] Ablation was performed at 70 almanza and 60 degrees and continuous drag lesion was performed. Post-ablation, the transisthmus conduction time had increased from 30 milliseconds to 195 milliseconds with an activation sequence consistent with bidirectional block. As such, the procedure was concluded. Intracardiac ultrasound verified no pericardial effusion. The patient received systemic protamine and all catheters and sheaths were pulled. Hemostasis was obtained. CONCLUSION: 1. Successful atrial fibrillation ablation with isolation of the pulmonary veins. 2. Successful atrial flutter ablation with evidence of bidirectional block. <ELECTRONICALLY SIGNED> By: Vikram Ny MD 09/07/21 1010 1201 2732 Vikram Ny MD /nt
== END 2021-09-05 10:40 | disposition home or self-care (01) ==
LOC: CATH 06:40 → 2N 07:03 → CATH 11:22 → 2N 09-05 10:40
PROVIDERS: ADMIT Internal Medicine Cardiovascular Disease; ATTEND Internal Medicine Cardiovascular Disease
DX: I48.91 Unspecified atrial fibrillation (principal); I48.92 Unspecified atrial flutter; I11.0 Hypertensive heart disease with heart failure; I50.30 Unspecified diastolic (congestive) heart failure; E78.5 Hyperlipidemia, unspecified; E66.9 Obesity, unspecified; Z79.82 Long term (current) use of aspirin; Z79.899 Other long term (current) drug therapy; Z68.39 Body mass index [BMI] 39.0-39.9, adult
CPT/HCPCS: 62110; 62900

== ENCOUNTER 2021-11-12 13:34 | Inpatient (IN) | payer OTHER ==
[~2021-11-12] VITALS: Ht 160 cm; Wt 91.9 kg
[2021-11-12 13:44] VITALS: BP 132/77
--- NOTE | 2021-11-12 14:00 | NUR ---
PT PRESENTS TO ED AFTER FALLING TODAY AT HOME. PT IS DAILY ETOH USER, REPORTS INTAKE OF APPROX 1 PINT OF WHISKEY PER DAY AND ADMITS TO APPROX HALF A PINT TODAY. PT REPORTS SHE WAS WALKING IN HER LIVING ROOM, AND USUALLY USES A CANE AND WAS NOT USING HER CANE, WHEN SHE LOST HER BALANCE AND FELL BACK ONTO HER BUTTOCKS. DENIES HITTING HEAD, DENIES LOC. PT IS ON ELIQUIS, AND LEVEL II TRAUMA ACITVATED ON ARRIVAL. PT IS AaOx4. REPORTS SHE IS DEPRESSED DUE TO HER DYING RECENTLY. PT FAMILY IS REQUESTING PT BE ADMITTED AND GET HELP FOR HER ALCOHOLISM AND DEPRESSION. PT IS CALM AND COOPERATIVE, PT HAS A FLAT AFFECT.
[2021-11-12 15:09] LABS: BASOPHILS 0.9 % (0.0-2.0); EOSINOPHILS 0.9 % (0.0-3.0); HEMATOCRIT 34.2 % (37.0-47.0); HEMOGLOBIN 11.4 gm/dL (12.0-15.0); LYMPHOCYTES 17.9 % (24.0-44.0); MCH 33.7 pg (26.0-34.0); MCHC 33.5 g/dL (28.0-37.0); MCV 100.7 fL (80.0-100.0); MONOCYTES 6.7 % (1.0-8.0); PLATELET COUNT 272 thou/uL (150-400); POLYS 73.6 % (36.0-66.0); RBC 3.39 mil/uL (4.20-5.00); RDW 14.8 % (10.5-14.5); WBC 6.8 thou/uL (4.0-11.0)
[2021-11-12 15:17] LABS: ANION GAP 15 mmol/L (7-16); BUN 17 mg/dL (7-18); CALCIUM 9.2 mg/dL (8.5-10.1); CHLORIDE 95 mmol/L (98-107); CO2 23 mmol/L (21-32); CREATININE 1.5 mg/dL (0.6-1.0); GLUCOSE 126 mg/dL (74-106); POTASSIUM 4.2 mmol/L (3.5-5.1); SODIUM 133 mmol/L (136-145)
[2021-11-12 15:28] LABS: ALBUMIN 3.2 g/dL (3.4-5.0); DIRECT BILIRUBIN 0.2 mg/dL (<0.1-0.2); LIPASE 848 U/L (73-393); PHOSPHORUS 2.4 mg/dL (2.6-4.7); SALICYLATE < 2.8 mg/dL (2.8-20.0); SGOT 53 U/L (15-37); SGPT 28 U/L (14-59); TOTAL BILIRUBIN 0.5 mg/dL (0.2-1.0); TOTAL PROTEIN 7.5 g/dL (6.4-8.2)
[2021-11-12 15:30] LABS: MAGNESIUM 0.9 mg/dL (1.8-2.4)
[2021-11-12 17:51] LABS: URINE BILIRUBIN NEGATIVE (Negative); URINE BLOOD NEGATIVE (Negative); URINE CLARITY CLEAR; URINE COLOR YELLOW; URINE GLUCOSE-RANDOM* NEGATIVE (Negative); URINE KETONES NEGATIVE (Negative); URINE LEUKOCYTES-REFLEX NEGATIVE (Negative); URINE NITRITE-REFLEX NEGATIVE (Negative); URINE PROTEIN (DIPSTICK) NEGATIVE (Negative); URINE SPECIFIC GRAVITY 1.015 (1.005-1.035); URINE UROBILINOGEN 0.2 E.U./dl (0.2-1.0)
[2021-11-12 18:23] LABS: AMP/METHAMP Negative (Negative); BARBITURATES Negative (Negative); BENZODIAZEPINES Negative (Negative); COCAINE Negative (Negative); METHADONE POSITIVE (Negative); OPIATES POSITIVE (Negative); PCP Negative (Negative)
[2021-11-12 22:01] VITALS: BP 121/60
[2021-11-13 05:28] LABS: MCH 33.4 pg (26.0-34.0); MCHC 32.4 g/dL (28.0-37.0); MCV 103.1 fL (80.0-100.0); RBC 2.61 mil/uL (4.20-5.00); RDW 15.1 % (10.5-14.5); WBC 4.7 thou/uL (4.0-11.0)
[2021-11-13 05:44] LABS: HEMOGLOBIN 8.7 gm/dL (12.0-15.0)
[2021-11-13 06:11] LABS: ALBUMIN 2.3 g/dL (3.4-5.0); CALCIUM 7.8 mg/dL (8.5-10.1); CREATININE 1.1 mg/dL (0.6-1.0); MAGNESIUM 1.4 mg/dL (1.8-2.4); POTASSIUM 3.6 mmol/L (3.5-5.1); TOTAL BILIRUBIN 0.4 mg/dL (0.2-1.0); TOTAL PROTEIN 5.7 g/dL (6.4-8.2)
--- NOTE | 2021-11-13 07:42 | EKG ---
[place] [address] [facility] [place] [place] [address] ELECTROCARDIOGRAM REPORT Name: ROSIBEL PUENTES IVANNA Room #: 170-15 ADM IN M.R.#: [id number] Admission: 11/12/21 Attend Phys: Panda Garcia MD Discharge: Date of : 59 Report #: [id number] [facility] ED Test Date: 2021-11-12 Test Time: 14:02:54 Pat Name: ROSIBEL PUENTES Department: Room: 170 Gender: F Sign Out Clerk: BURAK : 1955 Requested By: Prieto Borjas Order Number: [id number] MD: Girish Delgado Measurements Intervals [place] Rate: 96 P: [place]: QRS: 43 QRSD: 101 T: -1 QT: 333 QTc: 421 Interpretive Statements Baseline artifact limits rhythm interpretation Supraventricular rhythm Nonspecific ST segment abnormality Compared to ECG 07/21/2021 12:18:11 Nonspecific change in the ST and T wave segments Electronically Signed On 11-13-2021 7:42:40 [employer] ESTATE RENTAL AGENT by Girish Delgado [email or web address] <ELECTRONICALLY SIGNED> By: Girish Delgado MD, [facility] 11/13/21 0742 01 01 Girish Delgado MD, FAC /EPI
[2021-11-13 09:50] VITALS: BP 145/75
[2021-11-13] MEDS ORDERED: ZOLOFT 50 MG TA50 MG PO (09:57)
[2021-11-13] MEDS ORDERED: FUROSEMIDE 40 M40 M1 PO (09:59)
[2021-11-13] MEDS ORDERED: AMLODIPINE BESY10 MG PO (10:01)
[2021-11-13] MEDS ORDERED: NORCO 10-325 T1 EACH PO (10:02)
[2021-11-13] MEDS ORDERED: VITAMIN D21250 MCG PO (10:08)
[2021-11-13] MEDS ORDERED: LOSARTAN POTASS50 MG PO (10:10)
--- NOTE | 2021-11-13 11:00 | NUR ---
PT ASSISTED TO USE BEDPAN. TATUM CARE COMPLETED.
--- NOTE | 2021-11-13 12:30 | NUR ---
PT PLACED ON BEDPAN TO URINATE. TATUM CARE COMPLETED. PT REPOSITIONED AT THIS TIME. PURE WICK PLACED IN TATUM AREA TO SUCTION.
--- NOTE | 2021-11-13 13:05 | NUR ---
REPORT TO NINO
[2021-11-14 05:15] VITALS: BP 111/57
[2021-11-14 09:05] VITALS: BP 144/61
[2021-11-14 12:48] LABS: ABSOLUTE NEUTROPHILS 5.1 thou/uL (1.4-8.2); BASOPHILS 0.8 % (0.0-2.0); EOSINOPHILS 0.5 % (0.0-3.0); HEMATOCRIT 30.7 % (37.0-47.0); HEMOGLOBIN 10.1 gm/dL (12.0-15.0); LYMPHOCYTES 14.5 % (24.0-44.0); MCH 33.8 pg (26.0-34.0); MCV 102.4 fL (80.0-100.0); MONOCYTES 5.2 % (1.0-8.0); PLATELET COUNT 227 thou/uL (150-400); RDW 15.4 % (10.5-14.5); WBC 6.4 thou/uL (4.0-11.0)
[2021-11-14 13:18] LABS: ALBUMIN 2.7 g/dL (3.4-5.0); CALCIUM 8.2 mg/dL (8.5-10.1); CREATININE 0.8 mg/dL (0.6-1.0); MAGNESIUM 1.1 mg/dL (1.8-2.4); POTASSIUM 3.9 mmol/L (3.5-5.1); TOTAL BILIRUBIN 0.3 mg/dL (0.2-1.0); TOTAL PROTEIN 6.5 g/dL (6.4-8.2)
--- NOTE | 2021-11-14 16:59 | NUR ---
PT TRANSFERRED TO THE UNIT AT APPROXIMATELY 1600. PT ORIENTED TO THE ROOM. TELE MONITORING STARTED, PT PLACED ON BEDSIDE PULSE OX, INTIAL VITAL SIGNS OBTAINED. PT COMPLAINS OF A HEADACHE, ANXIETY, AND TREMORS. CIWA OBTAINED AND MEDICATION GIVEN PER PROVIDER ORDER. 2N ADMISSION PAPERWORK COMPLETED.
[2021-11-14 20:00] VITALS: BP 127/62
--- NOTE | 2021-11-14 21:59 | HC ---
[facility] [place] [address] CONSULTATION Name: ROSIBEL PUENTES IVANNA Room #: 210-P ADM IN M.R.#: [id number] Admission: 11/12/21 Attend Phys: Panda Garcia MD Discharge: Date of : 59 Report #: [id number] THIS REPORT FOR: cc: Carmela Wu MD, Laurie Dawn MD Kerstein, Andrew H. DO ~ DATE OF SERVICE: 11/13/2021 PSYCHIATRY CONSULTATION The patient is in Emergency Room bed 15. She has been admitted medically, so she is boarding down here. Of note, the patient's allergies are CODEINE, ERYTHROMYCIN BASE, MOXIFLOXACIN, NITROFURANTOIN, OXYCODONE AND RIFAMPIN. The patient's reason for Emergency Room presentation is mechanical fall. SOURCES OF INFORMATION: Patient and ER records. HISTORY OF PRESENT ILLNESS: A 66-year-old, obese, BMI 35.6, female, lost her balance and fell on her bottom. She denies hitting her head or loss of consciousness. Denies any chest pain or abdominal pain prior to fall. States she is on blood thinners for AFib. She also admits drinking roughly 1 pint of whiskey per day. She described this to me as 500 mL and last drink was this a.m. She denies any withdrawal symptoms at time of ER presentation. Denied recreational drug use. Also, reports she has been depressed for the last 2 years, which has worsened since her ex- in 08/2021. She states she has been drinking at this magnitude for a few years. She admits her of chronic condition, I forgot if she said it was something cancer, but it was progressive and hard on her. No one else could take care of him. The patient denied pain or suicidal ideation. Denies auditory or visual hallucinations. PCP is Dr. Wu. It says with children in the home. She actually told me she lives alone, but she has 3 children. Her son, Alex, is most involved. Interestingly, the patient is on hydrocodone and methadone. She takes Eliquis. Numerous surgeries, tonsillectomy in 1971, breast reduction in 2000, total hysterectomy in 1999, bilateral carpal tunnel release in 1992, left ankle fusion in 2008, pin removal, total knee in 2012, left knee arthroscopy 09/11/2013. Dr. Ny was actually in the ER and he told me he had done an ablation on her. Dr. Ny was advised of the patient's alcoholism out of clinical necessity. Interestingly, the patient has visit with Dr. Ny next week. Other medical problems include hypertension, atrial fibrillation, history of congestive heart failure, obesity, possible sleep apnea, hyperlipidemia. One additional surgery, cholecystectomy. [facility] [place] [place] [address] [place] [address] CONSULTATION Name: ROSIBEL PUENTES IVANNA Room #: 210-P ADM IN M.R.#: [id number] Admission: 11/12/21 Attend Phys: Panda Garcia MD Discharge: Date of : 59 Report #: [id number] HOME MEDICATIONS: They noted in the ER, methadone 5 mg p.o. b.i.d., flecainide 100 mg p.o. b.i.d., potassium chloride 20 mEq p.o. daily, lorazepam 1 mg, hydrocodone, ____, atorvastatin, acyclovir, ergocalciferol, dicyclomine, lansoprazole which is Prevacid and diclofenac. ALLERGIES: Already stated. SOCIAL HISTORY: Nonsmoker, 500 mL a day of whiskey. No recreational drug use. REVIEW OF SYSTEMS: from in the ER: CONSTITUTIONAL: Denies fever, chills, change in appetite. EYES: No eye pain, no visual change, blurred vision, double vision, discharge, photophobia. HEENT: Denies headache. Denies congestion, dizziness, difficulty swallowing. RESPIRATORY: Denies cough or shortness of breath, dyspnea on exertion. CARDIOVASCULAR: Denies chest pain, palpitations, chest pain with exertion. GASTROINTESTINAL: Denies nausea, vomiting, diarrhea and anorexia. GENITOURINARY: No symptoms reported. MUSCULOSKELETAL: Denies back pain, muscle pain, myalgias. SKIN: Denies rash. I asked her pain level myself. She said a 5/10. She reports osteoarthritis. NEUROLOGICAL: Actually she did report a headache to me today on presentation to the ER. PSYCHIATRIC: She reported depression. Denied SI, HI. Denied auditory, visual, or tactile hallucinations. LABORATORY DATA: EKG done in ER, found to be in atrial flutter with a rate of 96. CT head- no acute intracranial abnormalities identified. Chest x-ray was negative. Occult blood, actually ordered, but not received. Laboratories here in the ER. She is quite anemic with a hemoglobin, some of this is actually delusional, she went from 11.4 and 34.2 yesterday to 8.7 and 27.0, white count 4.7, platelet count 185. Chemistry: Sodium 135, potassium 3.6, chloride 102, bicarbonate 23, anion gap 10, BUN 14, creatinine 1.1, estimated GFR 50, glucose 99, calcium 7.8, phosphorus 3.2, magnesium 1.4, total bilirubin 0.4, AST 41, ALT 20, alkaline phosphatase 86, total protein 5.7, albumin 2.3. NT-proBNP 325. TSH normal 0.819. Urinalysis negative. Toxicology was positive for opiates and methadone, otherwise negative, salicylate negative, acetaminophen negative. PHYSICAL EXAMINATION: VITAL SIGNS: Today, temperature 36.8, pulse 91, respirations 16, BP 129/62, O2 sat 98%. She got 1 mg of Ativan when I was with her in the ER Room. GENERAL: Lying supine in bed, propped up in the Emergency Room rsturgeon. Actually, I think it was a full hospital bed since she was brought in out of here. [facility] [place] [place] [address] [place] [address] CONSULTATION Name: ROSIBEL PUENTES IVANNA Room #: 210-P ADM IN M.R.#: [id number] Admission: 11/12/21 Attend Phys: Panda Garcia MD Discharge: Date of : 59 Report #: [id number] MENTAL STATUS EXAMINATION: Well-developed, obese, unkempt female appearing at least stated age. Attention fair. Concentration fair. She did not know the date, but knew the day of the week, the month, the year, name of the hospital and most importantly sandra Laura Soriano was customer service operatorinternational affairs vice president. Mood okay. Affect is constricted, congruent. Insight and judgment would be fair to limited. Fund of knowledge at least average. BACKGROUND HISTORY: Born and raised in [place], [place]. 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 She has 3 children. Her son, Alex, is most involved. She denied family history of mental illness, family history of addiction disorders. FORMULATION: A 66-year-old female with chronic pain condition and alcoholism, admitted after a fall. DIAGNOSES: At this time, substance use disorder for alcohol at least moderate degree, currently in withdrawal. Chronic pain syndrome, on methadone. Her other morbidities from the hospitalist note are as follows: 1. She had a critical hypomagnesemia, acute kidney injury, morbid obesity, atrial fibrillation/flutter. She had an ablation on 09/04/[address] Ny, on flecainide. 2. Chronic diastolic heart failure, probable obstructive sleep apnea, hypertension, hyperlipidemia. RECOMMENDATIONS: The patient remain inpatient to complete detox from alcohol. She is at high risk of complications and delirium tremens, withdrawal seizures could be disastrous in her. Patient would not be a candidate for a 28-day residential treatment program. Given the availability of these programs and the COVID concerns, her doing a former outpatient program since she lives in [facility] would be desirable. I spoke with the patient about Alcoholics Anonymous. She does not currently participate. Would recommend social work contacting her son, Alex, for some family support as far as getting into AA meetings as possible, it would be nice if she could stay with a sober family member for a couple of weeks after discharge. I do not see a reason at this time to start any medications at the hospital setting. I will review her current medications in the hospital, thiamine 100 mg oral daily. I agree with that. vitamin oral daily, metoprolol succinate 100 mg oral daily, methadone 5 mg p.o. b.i.d., lorazepam 1 mg p.o. at bedtime. I would actually recommend discontinuing the scheduled lorazepam and only lorazepam given as far as the [facility] protocol. She is on flecainide 100 mg p.o. daily, famotidine 20 mg p.o. b.i.d., diclofenac 2 grams topical p.o. b.i.d., Eliquis 5 mg p.o. b.i.d., is on potassium phosphate supplement and hydrocodone 2 tabs q.4-6 p.r.n. for pain. At this time, I would not plan to follow this patient day to day, further Psychiatry CL help as needed, please contact Dr. Peter or [facility] [place] [place] [address] [place] [address] CONSULTATION Name: ROSIBEL PUENTES IVANNA Room #: 210-P ADM IN M.R.#: [id number] Admission: 11/12/21 Attend Phys: Panda Garcia MD Discharge: Date of : 59 Report #: [id number] myself. CL coverage this coming weekend on and 15 of November. Time spent on this case is greater than 60 minutes, greater than 50% of time was spent on reviewing records and coordination of care. <ELECTRONICALLY SIGNED> By: Arya De La O DO 11/14/21 [id number] Arya De La O DO /nt
[2021-11-15 05:23] VITALS: BP 152/91
--- NOTE | 2021-11-15 06:29 | NUR ---
NURSE NOTE: SHIFT SUMMARY; PT ALERT WITH CONFUSION; VERY WEAK AND REQUIRES ASSIST OF 2 TO AMBULATE OR TRANSFER. C/O HEADACHE-MEDS GIVEN PER CIWA PROTOCOL. ALL VS AND ASSESSMENTS CHARTED. DENIES NEEDS AT THIS TIME.
[2021-11-15 08:37] VITALS: BP 151/85
[2021-11-15 11:59] LABS: ABSOLUTE NEUTROPHILS 3.1 thou/uL (1.4-8.2); BASOPHILS 0.5 % (0.0-2.0); EOSINOPHILS 2.5 % (0.0-3.0); HEMATOCRIT 38.1 % (37.0-47.0); LYMPHOCYTES 21.7 % (24.0-44.0); MCH 32.8 pg (26.0-34.0); MCHC 32.6 g/dL (28.0-37.0); MCV 100.5 fL (80.0-100.0); MONOCYTES 6.3 % (1.0-8.0); PLATELET COUNT 179 thou/uL (150-400); RBC 3.79 mil/uL (4.20-5.00); WBC 4.4 thou/uL (4.0-11.0)
[2021-11-15 12:09] LABS: HEMOGLOBIN 12.4 gm/dL (12.0-15.0)
[2021-11-15 12:24] LABS: ALBUMIN 2.6 g/dL (3.4-5.0); CALCIUM 8.6 mg/dL (8.5-10.1); CREATININE 0.7 mg/dL (0.6-1.0); MAGNESIUM 1.4 mg/dL (1.8-2.4); PHOSPHORUS 2.3 mg/dL (2.5-4.9); POTASSIUM 3.2 mmol/L (3.5-5.1); TOTAL BILIRUBIN 0.3 mg/dL (0.2-1.0); TOTAL PROTEIN 6.5 g/dL (6.4-8.2)
[2021-11-15 12:35] VITALS: BP 152/90
--- NOTE | 2021-11-15 15:56 | NUR ---
PER PROVIDER REQUEST, [facility] WILL RESTART TONIGHT AT 2100.
[2021-11-15 16:17] VITALS: BP 144/79
--- NOTE | 2021-11-15 16:36 | NUR ---
ASSUMED PT CARE THIS MORNING. PT A&OX4 AND COMMUNICATING NEEDS TO STAFF APPROPRIATELY. PT CALLED APPROPRIATLEY WHEN NEEDEDING TO VOID. VOIDING WITHOUT ISSUE AND HAD A SMALL BM. PT CONSUMED A SMALL PORTION OF EACH MEAL WITH ENCOURAGEMENT. PT STATES THEY HAVE A HEADACHE ALONG WITH NAUSEA, SWEATING, ANXIETY, AND TREMORS. PT WAS CIWA ASSESSED REGULARLY THROUGHOUT THE SHIFT AND GIVEN MEDICATION ACCORDING TO PROVIDER PROTOCOL.
[2021-11-15 19:40] VITALS: BP 144/87
[2021-11-16 05:13] VITALS: BP 133/66
--- NOTE | 2021-11-16 05:23 | NUR ---
RECEIVED PATIENT AT 1900H.ASSESSEMENT DONE CHARTED.MEDS GIVEN PER DEC.PATIENT REFUSED FLECAINIDE, EXPLAINED THE IMPROTANCE OF THE MEDICATION BUT SHE STILL REFUSED.PATIENT ALSO REFUSED DICLOFENAC GEL.CIWA ASSSESSMENT DONE.ALL NEEDS ATTENDED.TO CONTINMALENA GAGNON.
[2021-11-16 07:20] LABS: ABSOLUTE NEUTROPHILS 2.9 thou/uL (1.4-8.2); BASOPHILS 0.6 % (0.0-2.0); EOSINOPHILS 3.7 % (0.0-3.0); HEMATOCRIT 27.2 % (37.0-47.0); LYMPHOCYTES 26.9 % (24.0-44.0); MCH 33.8 pg (26.0-34.0); MCHC 33.2 g/dL (28.0-37.0); MCV 101.5 fL (80.0-100.0); MONOCYTES 7.7 % (1.0-8.0); PLATELET COUNT 194 thou/uL (150-400); POLYS 61.1 % (36.0-66.0); RBC 2.68 mil/uL (4.20-5.00); RDW 15.1 % (10.5-14.5); WBC 4.8 thou/uL (4.0-11.0)
[2021-11-16 07:35] LABS: CALCIUM 8.4 mg/dL (8.5-10.1); CREATININE 0.7 mg/dL (0.6-1.0); MAGNESIUM 1.8 mg/dL (1.8-2.4); PHOSPHORUS 2.9 mg/dL (2.5-4.9)
[2021-11-16 07:49] LABS: POTASSIUM 2.9 mmol/L (3.5-5.1)
[2021-11-16 08:06] VITALS: BP 175/96
[2021-11-16 10:01] LABS: HEMATOCRIT 29.1 % (37.0-47.0); HEMOGLOBIN 9.9 gm/dL (12.0-15.0)
[2021-11-16 10:59] VITALS: BP 149/73
[2021-11-16 14:57] VITALS: BP 153/84
--- NOTE | 2021-11-16 16:05 | NUR ---
CHART REVIEWED AND DISCUSSED WITH CARE TEAM. AWAITING CONTINUED ONGOING ASSESSMENT WITH THERAPY TO DETERMINE DISCHARGE RECOMMENDATIONS. PT REMAINS ACTIVELY WITHDRAWING FROM ETOH HAVING TREMORS, HEADACHE, AND SOME NAUSEA. AWAITING PSYCH CONSULT. CM FOLLOWING FOR DISCHARGE RECOMMENDATIONS AND PLANNING. NO INTERVENTIONS COMPLETED AT THIS TIME.
[2021-11-16 19:09] VITALS: BP 149/86
--- NOTE | 2021-11-17 00:48 | NUR ---
ASSESSMENTS CHARTED, MEDS CHARTED GIVEN. PATIENT SITTING IN BED VERY ANXIOUS CIWA 12. PATIENT CONTINUES TO BE ANXIOUS, C/O PAIN IN MULTIPLE JOINTS, HEADACHE. FAMILY GAVE HER A MASSAGE PRIOR TO LEAVING. PAIN MEDS GIVEN. PATIENT WAS ABLE TO SLEEP. CONTINUATION OF CARE.
[2021-11-17 03:55] VITALS: BP 145/84
[2021-11-17 06:14] LABS: ABSOLUTE NEUTROPHILS 1.7 thou/uL (1.4-8.2); BASOPHILS 0.7 % (0.0-2.0); EOSINOPHILS 3.2 % (0.0-3.0); HEMATOCRIT 28.1 % (37.0-47.0); HEMOGLOBIN 9.4 gm/dL (12.0-15.0); LYMPHOCYTES 47.7 % (24.0-44.0); MCH 34.1 pg (26.0-34.0); MCHC 33.5 g/dL (28.0-37.0); MCV 101.7 fL (80.0-100.0); MONOCYTES 8.2 % (1.0-8.0); PLATELET COUNT 207 thou/uL (150-400); POLYS 40.2 % (36.0-66.0); RBC 2.76 mil/uL (4.20-5.00); RDW 15.1 % (10.5-14.5); WBC 4.1 thou/uL (4.0-11.0)
[2021-11-17 07:00] VITALS: BP 139/88
[2021-11-17 07:02] LABS: ALBUMIN 2.4 g/dL (3.4-5.0); ANION GAP 9 mmol/L (7-16); BUN 3 mg/dL (7-18); CALCIUM 8.7 mg/dL (8.5-10.1); CHLORIDE 103 mmol/L (98-107); CO2 25 mmol/L (21-32); CREATININE 0.8 mg/dL (0.6-1.0); DIRECT BILIRUBIN < 0.1 mg/dL (<0.1-0.2); GLUCOSE 103 mg/dL (74-106); LIPASE 835 U/L (73-393); MAGNESIUM 1.5 mg/dL (1.8-2.4); POTASSIUM 3.5 mmol/L (3.5-5.1); SGOT 32 U/L (15-37); SGPT 24 U/L (30-65); SODIUM 137 mmol/L (136-145); TOTAL BILIRUBIN 0.2 mg/dL (0.2-1.0)
[2021-11-17 09:00] LABS: HEMATOCRIT 30.6 % (37.0-47.0); HEMOGLOBIN 10.2 gm/dL (12.0-15.0)
--- NOTE | 2021-11-17 11:34 | NUR ---
CM SPOKE TO DR RAPHAEL THIS REGARDING DISCHARGE PLANNING WHO INDICATED PT NOT CANDIDATE FOR SBU UNIT. DISCHARGE PLAN IS FOR PT TO RETURN HOME WITH OUTPT RESOURCES SUCH [facility]. NURSING INDICATED PTS SON MAY STAY WITH PT A FEW DAYS IF NECESSARY. DISCUSSED WITH CARE TEAM. STILL AWAITING THERAPY RECOMMENDATIONS PT MAY NEED SNF ONCE MEDICALLY STABLE TO DISCHARGE. CM TO REACH OUT TO THERAPY FOR ASSESSMENT AND RECOMMENDATIONS TO DETERMINE FINAL DISCHARGE PLANS. CM FOLLOWING.
[2021-11-17 15:30] VITALS: BP 153/80
--- NOTE | 2021-11-17 17:11 | NUR ---
I have reviewed the documentation by CRISTÓBAL RAMIREZ from 11/17/21 to 11/17/21 and I concur with it. AURELIO SERRANO, PT, DPT
--- NOTE | 2021-11-17 18:09 | NUR ---
ASSUMED CARE OF PATIENT AT 0700. PATIENT REMAINS A&OX4, ASSESSMENT CHARTED. HYDROCODONE GIVEN TWICE THIS SHIFT FOR HEADACHE AND ATIVAN GIVEN TWICE FOR ETOH WITHDRAWAL. PATIENT REMAINS ANXIOUS BUT IS LESS SEDATED WITH THE LOWER DOSE OF ATIVAN. UP TO BSC WITH ONE AND GB. PATIENT PROGRESSING TOWARD POC.
[2021-11-17 19:31] VITALS: BP 142/71
[2021-11-18 03:19] LABS: HEMATOCRIT 27.8 % (37.0-47.0); HEMOGLOBIN 9.4 gm/dL (12.0-15.0); MCH 34.2 pg (26.0-34.0); MCHC 33.8 g/dL (28.0-37.0); MCV 101.1 fL (80.0-100.0); RBC 2.75 mil/uL (4.20-5.00); RDW 15.3 % (10.5-14.5); WBC 4.4 thou/uL (4.0-11.0)
[2021-11-18 03:26] VITALS: BP 177/95
[2021-11-18 04:03] LABS: CALCIUM 8.8 mg/dL (8.5-10.1); CREATININE 0.9 mg/dL (0.6-1.0); POTASSIUM 3.8 mmol/L (3.5-5.1)
[2021-11-18 04:45] VITALS: BP 135/68
--- NOTE | 2021-11-18 06:10 | NUR ---
ASSESSMENTS CHARTED, MEDS CHARTED GIVEN. PATIENT MORE ALERT AT START OF SHIFT. CHILDREN AT BEDSIDE PROVIDING MASSAGE AND HAIR WASHING. PATIENT GETTING UP TO BSC WITH STANDBY ASSIST. MOVING MUCH BETTER THAN YESTERDAY. PATIENT PROGRESSING TOWARD GOALS.
[2021-11-18 09:19] VITALS: BP 155/89
[2021-11-18 13:48] LABS: URINE BILIRUBIN NEGATIVE (Negative); URINE BLOOD NEGATIVE (Negative); URINE CLARITY CLEAR; URINE COLOR YELLOW; URINE GLUCOSE-RANDOM* NEGATIVE (Negative); URINE KETONES NEGATIVE (Negative); URINE LEUKOCYTES NEGATIVE (Negative); URINE NITRITE NEGATIVE (Negative); URINE PROTEIN (DIPSTICK) NEGATIVE (Negative); URINE SPECIFIC GRAVITY 1.025 (1.005-1.035); URINE UROBILINOGEN 0.2 E.U./dl (0.2-1.0)
--- NOTE | 2021-11-18 14:53 | NUR ---
Assess for length of stay. admit with etoh abuse/withdrawal and electrolyte abnormality. Pt had been caring for relative in hospice situation at home. Poor intake and increased etoh consumption. Possible wtloss about 8-12 lb. Intake variable during hospitalization 5-90%. On KCL, vitamin and thiamine. Will offer ensure enlive bid as additional nutrient source. Note possible discharge soon.
--- NOTE | 2021-11-18 16:48 | NUR ---
I have reviewed the documentation by CRISTÓBAL RAMIREZ from 11/18/21 to 11/18/21 and I concur with it. AURELIO SERRANO, PT, DPT
[2021-11-18 19:46] VITALS: BP 157/74
[2021-11-19 02:35] LABS: HEMATOCRIT 26.7 % (37.0-47.0); MCHC 33.7 g/dL (28.0-37.0); MCV 100.7 fL (80.0-100.0); RBC 2.65 mil/uL (4.20-5.00); WBC 4.6 thou/uL (4.0-11.0)
[2021-11-19 02:46] LABS: CALCIUM 8.9 mg/dL (8.5-10.1); CREATININE 0.8 mg/dL (0.6-1.0); POTASSIUM 3.9 mmol/L (3.5-5.1)
[2021-11-19 03:09] VITALS: BP 159/81
--- NOTE | 2021-11-19 05:15 | NUR ---
ASSESSMENTS CHARTED, MEDS CHARTED GIVEN. PATIENT RESTING IN BED DURING SHIFT. FAMILY AT BEDSIDE UNTIL END OF VISITING HOURS. PATIENT AFIB ON TELEMENTRY. PATIENT CONTINUES TO BE MORE AWAKE EACH DAY. FAMILY IS CONCERNED ABOUT PATIENT GOING HOME AND RETURNING TO DISTRUCTIVE BEHAVIOR. REQUESTING FOLDED CLOTH TAPER TALKING TO FAMILY. CONTINUE CARES.
[2021-11-19 12:37] VITALS: BP 166/75
--- NOTE | 2021-11-19 15:54 | NUR ---
I have reviewed the documentation by CRISTÓBAL RAMIREZ from 11/19/21 to 11/19/21 and I concur with it. AURELIO SERRANO, PT, DPT
--- NOTE | 2021-11-19 16:16 | NUR ---
CM MET WITH PT THIS DAY. PT REMAINS AGREEABLE TO SNF SERVICES. CM CALLED TO SPEAK WITH SON LEXA. HE IS ALSO IN AGREEMENT FOR SNF SERVICES ONCE MEDICALLY STABLE TO DISCHARGE. SPENT SOME TIME LISTENING AND ANSWERING QUESTIONS REGARDING THERAPY AND DISCHARGE PLAN. PTS SON REPORTS HIS MOTHER NEVER DRANK ALCOHOL WHEN HE WAS LITTLE OR EVEN ADULT. IT WASNT UNTIL JUST RECENTLY, AFTER PASSED, SHE UNFORTUNETLY USED ALCOHOL TO COPE WITH HER PAIN. HE REPORTS SHE IS DEPRESSED. WE DISCUSSED AND PTS SON REPORTED THE PLAN WAS AFTER SNF THEY WOULD SEEK COUNSELING FOR HER AND THE FAMILY. HE REPORTS HE WILL SPEND MORE TIME WITH HER ONCE SHE DISCHARGES FROM SNF. PTS SON VERY INVOLVED IN MOMS CARE. CONSCIOUS ABOUT TALKING TO HER AND THEM MAKING THE RIGHT DECISION. ALL PARTIES AGREE PT NEEDS TO GET A LITTLE STRONGER BEFORE GOING BACK HOME BY HERSELF. SON REPORTS PT HAS BAD ANKLES AND HAS ALWAYS SHUFFLED HER GAIT. DISCUSSED SNF FACILITIES AND S[facility] REFERRALS TO [facility], AND [facility]. CM CONTINUE TO FOLLOW FOR DC PLANNING AND F/U WITH REFERRAL ACCEPTANCE/DENIAL.
[2021-11-19 17:43] VITALS: BP 171/89
[2021-11-19 18:17] VITALS: BP 154/83
[2021-11-19 19:27] VITALS: BP 156/86
--- NOTE | 2021-11-20 05:44 | NUR ---
PT IS A&OX4 AND ABLE TO COMMUNICATE WANTS AND NEEDS TO STAFF. UP TO BSC WITH MIN ASSIST/SBA X1. PT CALLS APPROPRIATELY PRIOR TO TRANSFER. PT REQUESTS PRN PAIN MEDICATION AT ROUTINE INTERVALS R/T CHRONIC PAIN. MEDICATED X1 PER CIWA PROTOCOL SCORE OF 8. PT PLEASANT AND COOPERATIVE, AND SLEPT FAIRLY WELL THROUGH MUCH OF THE NIGHT. WILL CONTINUE TO OBSERVE FOR CHANGES
[2021-11-20 07:10] VITALS: BP 150/87
--- NOTE | 2021-11-20 13:50 | NUR ---
I have reviewed the documentation by CRISTÓBAL RAMIREZ from 11/20/21 to 11/20/21 and I concur with it. AURELIO SERRANO, PT, DPT
[2021-11-20 15:00] VITALS: BP 139/82
--- NOTE | 2021-11-20 15:37 | NUR ---
Spoke with [facility] ([address] [place] [address] [facility]) liaison's Wilmar Barger at [phone] and reviewed referral need for the patient for ongoing behavioral and ETOH services. Wilmar asked that all information be faxed to the Intake and admissions at [phone]. Wilmar then contacted Intake and Admissions to look for ability to accept to their inpatient services. Notified CM who did fax referral. Once a determination of acceptance has been made; CM will work with attending on medical stability to discharge and transfer if accepted. CM will continue to follow.
--- NOTE | 2021-11-20 15:48 | NUR ---
[facility] IS LOOKING AT PATIENT FOR SNF SERVICES. [facility] IS LOOKING WELL. CM FAXED REFERRAL TO [facility] AT [phone]. CM SPOKE TO PT, PTS SON, AND NEICE REGARDING SNF ON DISCHARGE. PTS NEICE EXPRESSED AFTER SPEAKING WITH REHAB THEY PREFER REFERRALS BE SENT TO [facility] AND [facility]. REFERRALS ALREADY SENT WELL SENT TO [facility], AND [facility]. [facility] DOES NOT ACCEPT [facility]. [facility] TO CALL SON TO INFORM OF THAT. PT, SON, AND NEICE AWARE IF WEEKEND DISCHARGE POSSIBLE IF MEDICALLY STABLE AND HAVE ACCEPTING FACILTIY. NO FURTHER CM INTERVENTIONS INDICATED AT THIS TIME.
--- NOTE | 2021-11-20 16:30 | NUR ---
assumed care of pt at 0700. pt aox3 no acuite distress, forgetful. up w/ walker and sba. no signs of withdrawal at this time. calls out appropriately. asking for her hydrocodone as it becomes available. no events on telemetry. waiting on placement. wcm.
--- NOTE | 2021-11-20 16:57 | NUR ---
SHOULD PT BE MEDICALLY STABLE TO DC OVER THE WEEKEND. 2 PLANS. PLAN A [facility] FAX DC ORDERS TO [phone] PHONE REPORT TO [phone] PLAN B TO [facility] REVIEWING REFERRAL. WOULD NEED ORDERS FAXED. [facility] FAX # [phone] PHONE NUMBER [phone] [facility] FAX [phone] PHONE NUMBER [phone] TRANSFER FORM ON CHART IF PT DISCHARGES TO INPT PSYCH. KEEP COPY ON CHART. AND AMBULANCE TRANSPORTATION ALSO PLACED ON CHART.
[2021-11-20 19:55] VITALS: BP 142/70
[2021-11-21 03:26] LABS: HEMATOCRIT 27.7 % (37.0-47.0); HEMOGLOBIN 9.2 gm/dL (12.0-15.0); MCH 33.5 pg (26.0-34.0); MCHC 33.1 g/dL (28.0-37.0); MCV 101.2 fL (80.0-100.0); RBC 2.73 mil/uL (4.20-5.00); RDW 15.3 % (10.5-14.5); WBC 4.6 thou/uL (4.0-11.0)
[2021-11-21 04:00] LABS: CALCIUM 9.2 mg/dL (8.5-10.1); CREATININE 0.9 mg/dL (0.6-1.0); POTASSIUM 3.5 mmol/L (3.5-5.1)
[2021-11-21 04:45] VITALS: BP 139/69
[2021-11-21 07:15] VITALS: BP 149/77
--- NOTE | 2021-11-21 07:29 | NUR ---
SLEPT MOST OF SHIFT. UP TO BATHROOM WITH STANDBY ASSIST AND WALKER. PAIN MEDICATIONS NEEDED. WORKING ON GOALS AND PLAN OF CARE FOR NOC. CONTINUE TO ASSES.
--- NOTE | 2021-11-21 10:03 | NUR ---
Assumed care of pt this AM. Pt is A&O x4, on RA, Afib on the monitor this AM. Pt c/o pain in the neck, back, & head. PRN medication given, as well as scheduled. Pt to shower this morning. Pt w/ visible anxiety & given PRN medication. Pt w/ no other complaints at this time. Frequent observation in place. High fall precautions in place.
[2021-11-21 15:10] VITALS: BP 143/79
[2021-11-21 19:47] VITALS: BP 160/88
[2021-11-22 04:05] VITALS: BP 130/78
[2021-11-22 07:05] VITALS: BP 151/82
--- NOTE | 2021-11-22 07:12 | NUR ---
PTS PRN ANXIETY AND PAIN MEDS GIVEN CHARTED, PT RESTING ON AND OFF THRU THE NOC, VSS, PT CALLS APPROPRIATLY FOR ASSIST TO BR, REPORT GIVEN TO NEXT SHIFT TO CON'T WITH PPOC.
[2021-11-22 15:10] VITALS: BP 155/96
[2021-11-22 19:54] VITALS: BP 150/79
--- NOTE | 2021-11-23 00:25 | NUR ---
ASSESSMENTS CHARTED, MEDS CHARTED GIVEN. PATIENT ALERT AND ORIENTED, SMILING. GETTING OUT OF BED TO USE THE RESTROOM. USING CANE FOR BALANCE. C/O PAIN IN JOINTS. PLAN IS FOR TRANSFER TO A SNF. CONTINUED CARES.
[2021-11-23 04:09] VITALS: BP 151/92
[2021-11-23 07:05] VITALS: BP 159/110
[2021-11-23 11:15] VITALS: BP 144/66
--- NOTE | 2021-11-23 12:05 | NUR ---
[facility] LIAISON VISITED WITH PT THIS AM AND INDICATED THAT THEY ARE LIKELY ABLE TO ACCPET. CM FAXED CLINICAL UPDATES OVER. THEY ARE WANTING UPDATED CIWA. AWAITING NOTE OF THAT. CM FOLLOWING.
[2021-11-23] MEDS ORDERED: TAMBOCOR 100 M100 M1 PO (13:03)
[2021-11-23 15:00] VITALS: BP 135/81
--- NOTE | 2021-11-23 15:26 | NUR ---
ASSUMED CARE OF PATIENT AT 0700. A&OX4, RA, UP TO BR WITH SBA. PATIENT RECIEVED PAIN MEDICATION TWICE FOR GENERALIZED PAIN AND ATIVAN ONCE FOR ANXIETY. PATIENT TO DC TO [facility]. TELE AND IV DC'D AND REMOVED. PATIENT PROGRESSED TOWARD POC.
--- NOTE | 2021-11-24 08:36 | NUR ---
Late Entry: FANTASMA received call from CCU at 1800 on 11/23/2021 stating that transportation had not yet shown up to pickle pumper pt. Transportation was scheduled for 1630 per [facility]'s arrangements. FANTASMA placed call to Nathan and Dominga at [facility]. Per Dominga, transportation was at [facility]. FANTASMA spoke with US on CCU to provide update. FANTASMA received another call for CCU at 1900 stating transportatio had not yet arrived. FANTASMA spoke with Dominga at [facility] to provide update. Dominga to reschedule transportation with another company. FANTASMA placed call to CCU at 1910 to provide update. Transportation had just arrived. FANTASMA updated Dominga. No additional SW needs identified. Case closed.
== END 2021-11-23 19:49 | DRG 438 ==
LOC: ER 13:34 → 2N 17:18 → EROBS 17:18 → 2N 11-14 15:52
PROVIDERS: Emergency Medicine; Hospitalist; Internal Medicine; Psychiatry & Neurology Psychiatry; ADMIT Internal Medicine; ATTEND Internal Medicine
DX: K85.20 Alcohol induced acute pancreatitis without necrosis or infection (principal); N17.0 Acute kidney failure with tubular necrosis; I48.92 Unspecified atrial flutter; I50.32 Chronic diastolic (congestive) heart failure; E44.0 Moderate protein-calorie malnutrition; F10.239 Alcohol dependence with withdrawal, unspecified; I48.91 Unspecified atrial fibrillation; Z20.822 Contact with and (suspected) exposure to COVID-19; E78.5 Hyperlipidemia, unspecified; E83.42 Hypomagnesemia; G89.4 Chronic pain syndrome; R53.81 Other malaise; E66.01 Morbid (severe) obesity due to excess calories; D64.9 Anemia, unspecified; G47.33 Obstructive sleep apnea (adult) (pediatric); I11.0 Hypertensive heart disease with heart failure; E87.6 Hypokalemia; F10.229 Alcohol dependence with intoxication, unspecified; Z79.01 Long term (current) use of anticoagulants; Z90.710 Acquired absence of both cervix and uterus; Z68.35 Body mass index [BMI] 35.0-35.9, adult; Z90.49 Acquired absence of other specified parts of digestive tract; Z88.6 Allergy status to analgesic agent; Z88.1 Allergy status to other antibiotic agents; Z88.8 Allergy status to other drugs, medicaments and biological substances; Z79.891 Long term (current) use of opiate analgesic
CPT/HCPCS: 10081